=== PATIENT | male | born 1965 | race Caucasian/White ===

== ENCOUNTER 2024-09-22 06:25 | Day surgery (SDC) | payer BC, SELFPAY ==
[2024-09-22] VITALS (20 sets, daily range): BP systolic 121–168; BP diastolic 72–92; BMI 27.1
[2024-09-22 07:15] LABS: Glucose - Point of Care 135 mg/dl (70-99)
--- NOTE | 2024-09-22 08:41 | ITS.CL.CATH ---
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
Cardiac Catheterization
Procedure Report:
LEFT HEART CATHETERIZATION
Date of Procedure: September 22, 2024
Procedures performed:
1: Coronary angiography
2: Left ventricular hemodynamic assessment
Primary Care Physician: Dr. Soniya Delgado
Primary Rasper Machine Operator: Dr. Enmanuel Frausto
INDICATION: The patient is a 59-year-old man with a past medical history significant for hypertension and diabetes who presented with increased fatigue. Echocardiography on July 10, 2024 showed significant mitral valve abnormality suggesting
anterior mitral valve prolapse with severe mitral regurgitation. Left ventricular ejection fraction is estimated at 50 to 55%.
ACCESS: The patient was prepped and draped in usual sterile fashion. A 6 Kazakh sheath was placed in the right radial artery using the Seldinger over the wire technique.
HEMODYNAMIC FINDINGS (mmHg):
LV(s/d,EDP): 126/12, 23
Ao(s/d,m): 126/85, 100
ANGIOGRAPHIC FINDINGS:
Single-plane Left Ventriculography in OROZCO Projection: Not done.
Coronary Angiography:
Dominance: Left
Left Main: Normal
Left Anterior Descending: The LAD is a medium caliber vessel that gives rise to 1 high first diagonal branch and 2 smaller distal diagonals that are widely patent. All vessels have normal distal flow.
Left Circumflex: The left anterior descending artery is a large dominant system that gives rise to a medium caliber OM1 and a larger left-sided posterior left ventricular branch and terminates in a small posterior descending artery. All vessels are
widely patent with only very mild luminal irregularities and normal flow.
Right Coronary: The right coronary artery is a large caliber but nondominant vessel that is widely patent.
Fluoroscopy Time (min): 2.4
Radiation Dose (mGy): 380
DAP (Gy.cm2): 23
Closure device: None. A TR band was applied for hemostasis at the right wrist.
Complications: None.
ASSESSMENT:
1: Very mild nonobstructive coronary artery disease.
CONCLUSIONS and RECOMMENDATIONS:
1: Proceed with transesophageal echo to better define mechanism of mitral regurgitation followed by CT surgical evaluation for mitral valve repair.[email or web address]
2: Continue medical therapy for diabetes and hypertension.
Cecilio Mcmahon M.D.
Copy to: Dr. Patton as well
== END 2024-09-22 12:10 | disposition home or self-care (01) ==
LOC: CATH 06:25
PROVIDERS: ATTENDING PHYSICIAN Internal Medicine Interventional Cardiology; FAMILY PHYSICIAN Family Medicine; REFERRING PHYSICIAN Internal Medicine Cardiovascular Disease
DX: I34.0 Nonrheumatic mitral (valve) insufficiency (principal); I25.10 Atherosclerotic heart disease of native coronary artery without angina pectoris; I10 Essential (primary) hypertension; E11.9 Type 2 diabetes mellitus without complications; Z79.82 Long term (current) use of aspirin; Z79.84 Long term (current) use of oral hypoglycemic drugs
CPT/HCPCS: 82962; 93454; C1894; Q9967

== ENCOUNTER 2024-09-23 07:06 | Day surgery (SDC) | payer BC, SELFPAY ==
[2024-09-23 08:01] LABS: Glucose - Point of Care 152 mg/dl (70-99)
== END 2024-09-23 10:04 | disposition home or self-care (01) ==
LOC: CATH 07:06
PROVIDERS: ATTENDING PHYSICIAN Internal Medicine Cardiovascular Disease; FAMILY PHYSICIAN Family Medicine; OTHER PHYSICIAN Internal Medicine Cardiovascular Disease
DX: I08.3 Combined rheumatic disorders of mitral, aortic and tricuspid valves (principal); R53.83 Other fatigue; I10 Essential (primary) hypertension; E11.9 Type 2 diabetes mellitus without complications; I25.10 Atherosclerotic heart disease of native coronary artery without angina pectoris; Z79.82 Long term (current) use of aspirin; Z79.84 Long term (current) use of oral hypoglycemic drugs
CPT/HCPCS: 93312; 93320; 93325; 82962

== ENCOUNTER 2024-10-28 04:51 | Inpatient (IN) | payer BC, SELFPAY ==
[2024-10-22 08:21] VITALS: BMI 25.6
[2024-10-22 08:53] LABS: % Basophils 0.9 % (0-2); % Eosinophils 4.7 % (0-6); % Immature Granulocytes 0.6 % (0-0.5); % Lymphocytes 25.6 % (20.5-51.1); % Monocytes 9.8 % (1.7-9.3); % Neutrophils 58.4 % (42.2-75.2); Absolute Basophils 0.1 10^3/uL (0-0.2); Absolute Eosinophils 0.3 10^3/uL (0-0.7); Absolute Lymphocytes 1.8 10^3/uL (1.2-3.4); Absolute Monocytes 0.7 10^3/uL (0.1-0.6); Hematocrit 44.6 % (39.0-52.0); Hemoglobin 16.4 g/dL (13.0-18.0); Mean Corp Hgb Conc. 36.8 g/dL (33.0-37.0); Mean Corpuscular Hgb 33.2 pg (27.0-31.0); Mean Corpuscular Volume 90.3 fL (80.0-94.0); Mean Platelet Volume 10.6 fL (7.4-10.4); Nucleated Red Blood Cells % 0 % (-); Platelet Count 176 10^3/uL (130-400); Red Blood Cell Count 4.94 10^6/uL (4.70-6.10); White Blood Cell Count 6.8 10^3/uL (4.8-10.8)
[2024-10-22 09:01] LABS: INR 0.94; PT 12.9 Sec (11.4-14.6)
[2024-10-22 09:02] LABS: APTT 27.5 Sec (23.4-35.0)
[2024-10-22 09:07] LABS: Urine Albumin Negative (Neg - Trace); Urine Bilirubin Negative (Negative); Urine Character Clear (Clear); Urine Color Yellow; Urine Glucose Negative (Negative); Urine Ketone Negative (Negative); Urine Leukocyte Negative (Negative); Urine Nitrite Negative (Negative); Urine Occult Blood Negative (Negative); Urine Urobilinogen Negative (Neg - 1+)
--- NOTE | 2024-10-22 10:03 | CM ---
CM following for DC planning needs.
Met w/ patient and spouse, Chioma during PATs for planned MV Repair, 10/28.
Pt. resides w/ spouse in a private, 2 story home w/ 0 MARIE. Functionally, patient is indep. at baseline w/ ADLs, mobility without the use of any assisted device.
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
Pt. has RX plan and uses [facility] in [place] on .
Reviewed pre and post op routines.
Soap, shower instructions and Cardiac Surgery booklet provided.
Discussed post op restrictions to include lifting, driving, flying and sternal precautions.
Reviewed post op MD appointments, Cardiac Rehab and visit from CT Transitional Care RN/ patient agreeable.
Plan is for MV Repair, 10/28
Antic. DC plan is for home w/ CT Transitional Care RN.
Will follow.
[2024-10-22 11:32] LABS: Glycohemoglobin (HgbA1c) 5.8 % (4.0-5.6)
[2024-10-22 14:25] LABS: ALT (SGPT) 26 U/L (0-50); Albumin 4.8 g/dl (3.5-5.0); Alkaline Phosphatase 53 U/L (38-126); Blood Urea Nitrogen 22 mg/dl (9-20); Calcium 9.8 mg/dl (8.4-10.2); Carbon Dioxide 24 mmol/L (22-30); Chloride 99 mmol/L (98-107); Direct Bilirubin 0.1 mg/dl (0.0-0.4); Estimated Creatinine Clearance 117 ml/min; Glucose 144 mg/dl (70-99); Potassium 4.9 mmol/L (3.5-5.1); Sodium 138 mmol/L (135-145); Total Bilirubin 0.7 mg/dl (0.2-1.3); Total Protein 7.7 g/dl (6.3-8.2); eGFR > 60.00
[2024-10-22 16:19] LABS: AST (SGOT) 25 U/L (17-59)
[2024-10-28] VITALS (15 sets, daily range): BP systolic 84–152; BP diastolic 55–87; BMI 26.0
[2024-10-28] MEDS: LOPRESSOR 25 MG PO (05:20)
[2024-10-28] MEDS: BACTROBAN 2% OINTMENT 1 APPLIC NASAL ×2 (05:21→21:04)
[2024-10-28] MEDS: PROTONIX 40 MG PO (05:21)
[2024-10-28] MEDS: MAGNESIUM OXIDE 500 MG PO (05:21)
--- NOTE | 2024-10-28 06:26 | W.CVOR.SURPR ---
CVOR Surgeon Immed Pre Op
-
I have examined this patient prior to performance of the scheduled procedure.
The patient's condition is unchanged from the time of the dictated/written History and
Physical and the patient is able to undergo the scheduled procedure.
Sternotomy MV Repair + FANNY Clip +/- LA MAZE
[2024-10-28 08:03] LABS: ACT+ - POC 120 Seconds (82-134)
[2024-10-28 08:22] LABS: Urine Albumin Negative (Neg - Trace); Urine Bilirubin Negative (Negative); Urine Character Clear (Clear); Urine Color Yellow; Urine Glucose Trace (Negative); Urine Ketone Negative (Negative); Urine Leukocyte Negative (Negative); Urine Nitrite Negative (Negative); Urine Occult Blood Negative (Negative); Urine Specific Gravity 1.025 (<1.030); Urine Urobilinogen Negative (Neg - 1+)
--- NOTE | 2024-10-28 08:33 | CM ---
Reviewed chart. Mr. Mayo is in the operating room today. Prior to admission he resides with his spouse in a two story home without any steps to enter. Prior to admission he was independent with ambulation and adls. He has a prescription plan
and uses [facility]. Medical work-up in progress. The discharge plan is to return home with his spouse and a home visit by the Transitional Care Nurse when medically stable.
[2024-10-28 08:52] LABS: ACT+ - POC 589 Seconds (82-134)
[2024-10-28 09:11] LABS: B.E. - POC -1.6 mmol/L; Glucose - POC 191 mg/dl (70-99); HCO3 - POC 24 mmol/L (21-28); Hematocrit - POC 36 % PCV (42-52); Hemodilution- POC No; Hemoglobin Calculated - POC 12.2; Ionized Calcium - POC 1.23 mmol/L (1.15-1.33); O2 Saturation %Calculated-POC 99.6 % (94-98); PCO2 - POC 40 mmHg (35-48); PO2 - POC 191 mmHg (83-108); Potassium - POC 4.2 mmol/L (3.5-5.1); Sodium - POC 140 mmol/L (136-145); Specimen Type - POC Arterial; pH - POC 7.38 (7.35-7.45)
[2024-10-28 09:24] LABS: ACT+ - POC 610 Seconds (82-134)
[2024-10-28 09:48] LABS: B.E. - POC 1.2 mmol/L; Glucose - POC 207 mg/dl (70-99); HCO3 - POC 26 mmol/L (21-28); Hematocrit - POC 34 % PCV (42-52); Hemodilution- POC Yes; Hemoglobin Calculated - POC 11.4; Ionized Calcium - POC 1.04 mmol/L (1.15-1.33); O2 Saturation %Calculated-POC 99.7 % (94-98); PCO2 - POC 38 mmHg (35-48); PO2 - POC 186 mmHg (83-108); POC Comment CPB; Potassium - POC 5.6 mmol/L (3.5-5.1); Sodium - POC 137 mmol/L (136-145); Specimen Type - POC Arterial; pH - POC 7.43 (7.35-7.45)
[2024-10-28 09:59] LABS: ACT+ - POC 549 Seconds (82-134)
[2024-10-28 10:19] LABS: B.E. - POC 0.9 mmol/L; Glucose - POC 153 mg/dl (70-99); HCO3 - POC 27 mmol/L (21-28); Hematocrit - POC 38 % PCV (42-52); Hemodilution- POC Yes; Ionized Calcium - POC 1.21 mmol/L (1.15-1.33); O2 Saturation %Calculated-POC 99.9 % (94-98); PCO2 - POC 47 mmHg (35-48); PO2 - POC 307 mmHg (83-108); POC Comment CPB; Potassium - POC 3.9 mmol/L (3.5-5.1); Sodium - POC 142 mmol/L (136-145); Specimen Type - POC Arterial; pH - POC 7.36 (7.35-7.45)
[2024-10-28 10:27] LABS: ACT+ - POC 462 Seconds (82-134)
[2024-10-28 10:51] LABS: B.E. - POC -0.1 mmol/L; Glucose - POC 111 mg/dl (70-99); HCO3 - POC 26 mmol/L (21-28); Hematocrit - POC 39 % PCV (42-52); Hemodilution- POC Yes; Hemoglobin Calculated - POC 13.3; Ionized Calcium - POC 1.25 mmol/L (1.15-1.33); O2 Saturation %Calculated-POC 99.9 % (94-98); PCO2 - POC 49 mmHg (35-48); PO2 - POC 337 mmHg (83-108); POC Comment CPB; Potassium - POC 3.3 mmol/L (3.5-5.1); Sodium - POC 144 mmol/L (136-145); Specimen Type - POC Arterial; pH - POC 7.34 (7.35-7.45)
[2024-10-28 11:00] LABS: ACT+ - POC 495 Seconds (82-134)
[2024-10-28 11:04] LABS: B.E. - POC -2.1 mmol/L; Glucose - POC 94 mg/dl (70-99); HCO3 - POC 22 mmol/L (21-28); Hematocrit - POC 32 % PCV (42-52); Hemodilution- POC Yes; Hemoglobin Calculated - POC 10.8; PCO2 - POC 32 mmHg (35-48); PO2 - POC 540 mmHg (83-108); POC Comment REWARM; Potassium - POC 4.1 mmol/L (3.5-5.1); Sodium - POC 143 mmol/L (136-145); Specimen Type - POC Arterial; pH - POC 7.44 (7.35-7.45)
[2024-10-28 11:10] LABS: ACT+ - POC 109 Seconds (82-134)
[2024-10-28 11:11] LABS: B.E. - POC -3.2 mmol/L; Glucose - POC 95 mg/dl (70-99); HCO3 - POC 22 mmol/L (21-28); Hematocrit - POC 29 % PCV (42-52); Hemodilution- POC Yes; Hemoglobin Calculated - POC 9.7; Ionized Calcium - POC 1.44 mmol/L (1.15-1.33); O2 Saturation %Calculated-POC 99.9 % (94-98); PCO2 - POC 38 mmHg (35-48); PO2 - POC 367 mmHg (83-108); POC Comment POST; Potassium - POC 3.5 mmol/L (3.5-5.1); Sodium - POC 144 mmol/L (136-145); Specimen Type - POC Arterial; pH - POC 7.37 (7.35-7.45)
--- NOTE | 2024-10-28 11:41 | W.PN.CT.SURG ---
CT Surgery Operative Note
-
CARDIAC SURGERY OPERATIVE REPORT
Preoperative Diagnosis: Myxomatous mitral valve degeneration with severe insufficiency
Postoperative Diagnosis: Same
Procedure(s) Performed:
1. Standard sternotomy with aortic and bicaval cannulation
2. Radical mitral valve repair [triangular resection of P2, imbrication of the leaflets at P1/P2 and P2/P3, free edge remodeling, 40 mm band annuloplasty, heavy debridement of calcification from the anterior lateral probably muscle head to the P1
P2 segment of the posterior annulus]
3. Left atrial appendage exclusion [35 mm clip]
4. Transesophageal echocardiography
5. Placement of temporary atrial and ventricular pacing wire
Date of Surgery: 10/28/2024
Comorbidities:
1. Myxomatous mitral valve degeneration, severe mitral valve insufficiency, type II pathology mixed with calcification of the subvalvular apparatus
2. Diabetes mellitus type 2
3. Hypertension
4. Very mild nonobstructive coronary artery disease
5. Depression/anxiety
6. Hyperlipidemia
7. Mild diabetic retinopathy
8. PVCs
Attending Surgeon: Eliezer Hogan MD, MS
Assistants: Connie Ashford PA-C (present and necessary to case assistant, retraction, suction, exposure, suture management, and wound closure under my direction)
Anesthesiology: Gene Bundy MD and Chicho Wang CRNA
Scrub and Circulating RNs: Staci Henry RN, Kodi Alonzo RN
Inoculator: Justin Weems CCP
Anesthesia: GETA
EBL: per perfusion records
Products: None
CPB Time: 117 minutes
Aortic Cross Clamp Time: 104 minutes
Indication(s) for Procedures: This is a 59-year-old male with known mitral valve insufficiency. More recently has become symptomatic in the pulm shortness of breath as well as daily fatigue with minimal level of exertion. He therefore met stage D
symptomatology and class I indication for surgical repair. The valve itself is a very complex pathology with a combination of type II pathology as well as calcification and restriction at the anterior lateral to operative muscle head towards the P1
P2 segment. His STS was reviewed in the office. She had decision making was to pursue surgical intervention..
Mitral Valve Description: Very abnormal appearing mitral valve thickening of both the anterior and posterior leaflets, heavy calcification of the anterior lateral papillary muscle head that extended into the free margin of the P1 and P2 scallops.
There was restriction at the free margin of P1. There was also a moderate degree of mitral annular calcification extending from the P1 all the way to the midportion of P3. The annulus was severely dilated.
Findings: Left ventricular ejection fraction preoperatively was 65%. Following surgery his EF remained the same at 65% with no new regional wall motion abnormalities his mitral valve was quite complex and pathology had a combination of both
prolapsing of the posterior leaflet with very large scallops between P1 and P2 and P2 and P3 and billowing of both the anterior and posterior leaflets. There is also a heavy degree of calcification of the anterior lateral papillary muscle head
extending into the subvalvular apparatus up into the scallops. This was resected using a rongeur and sharp dissection. I then did a triangular section of part of the P2 scallop and freed the P1 free margin in order to allow better motion of the
posterior leaflet. I then reapproximated P1 onto P2 and then P2 1 to P3. The free margin of all 3 scallops were then remodeled in order to promote a downward parachuting effect. I initially placed [place]Shiva to the posterior leaflet. With
pressurization of the left ventricle, the coaptation that was previously there without the cords seem to be a little bit worse. Therefore I elected to remove all of the [place]-Shiva sutures to the posterior leaflet. Dynamic inflation of the left
ventricle revealed good coaptation height of approximately 1 cm., For cardiopulmonary bypass there was no residual mitral valve insufficiency, low mean gradient across the valve, and no systolic anterior motion of the leaflets. He did not require
any inotropic support or transfusions of any blood products. He was in sinus rhythm after short period of AV pacing. Initially there was some concern for a left atrial thrombus on preoperative YU, this was more likely folds in the left atrial
pended. After crossclamping I open the left atrial appendage at the tip to and visualized inside, there was no evidence of clot whatsoever. The appendage was then clipped flush to the base with a 35mm device.
Specimen(s): Posterior leaflet P2 triangular resection.
Prosthesis:
1. 40 mm physio flex band annuloplasty, serial #[id number]
2. 35 mm clip, serial #[id number]
3. Multiple 5-0 Prolene sutures to reapproximate the posterior leaflet
Description of Procedure: The patient was taken to the operating room. Their identity and procedure to be performed were verified and they were positioned supine on the operating table. Induction via general anesthesia with endotracheal intubation
was performed and central venous access and arterial monitoring were inserted. A preoperative transesophageal echocardiogram was performed to assess cardiac function and valvular function. The patient was then prepped and draped from chin to feet in
a sterile fashion. A preoperative time-out was performed with all members of the team present. A midline chest incision was performed along with median sternotomy. The innominate vein was isolated. Full heparinization was given (a total of 40,000
units). We created a pericardial well. The aortic cannulation site was chosen where it was soft, pliable, and free of calcium. Cannulation was performed with an arterial cannula in the ascending aorta, angled metal tip cannular in the superior vena
cava and straight bendable cannula in the inferior vena cava. The arterial cannula line had an appropriate bounce and correlating pressures. Next, a root vent/antegrade cannula was inserted into the ascending aorta. The ACT was confirmed to be over
400 and retrograde autologous priming was performed before commencing cardiopulmonary bypass. The pulmonary artery was away from the aorta to facilitate a clamp site. Sondergaard�s groove was developed after creating the oblique sinus. The
aortic cross-clamp was placed after decreasing the flow on the bypass and mean arterial pressure. A total of 1.2L initial dose of antegrade Del-Nido cardioplegia solution was given and planned for re-dosing every 90 minutes as necessary. There was
rapid electro-mechanical arrest of the heart at 300 cc of cardioplegia. The left ventricle was observed for distention on echocardiogram and manual palpation. Cold slush was placed into a lap on the RV and we systemically cooled to 34 degrees
centigrade. Once heart was fully arrested, it was rotated medially. The left atrial appendage tip was then resected in a visualize down into the left atrial appendage and found no clot. A 35 mm device was sized to the base of the clip and then
deployed.
Carbon dioxide was used to flood the field. The mitral valve was access via the left atrium at the interatrial groove followed by valve analysis. The mitral valve was repaired as described above. The left ventricular vent was repositioned across
the mitral valve into the left ventricular and the left atrium was closed with a 3-0 prolene.
De-airing maneuvers were performed and temporary bipolar ventricular pacing wires were placed on the base of the right ventricle along with temporary atrial pacing wires at the SVC right atrial junction. The patient was placed in a Trendelenburg
position and flows on bypass were lowered. The aortic cross clamp was removed and flows were slowly brought back up. The left atrial suture line was hemostatic. Transesophageal echocardiography revealed no evidence of systolic anterior motion and
ventricular function was normal. Once de-airing was satisfactory the left ventricular and root vents were removed. After verifying acceptable parameters, we initiated weaning from cardiopulmonary bypass. Once we were off cardiopulmonary bypass, the
venous cannulas was clamped and removed sequentially. A test dose of protamine was administered and the patient was monitored for any adverse reaction before resuming protamine. Once half of the protamine dose was delivered, pump suckers were turned
off and the systolic blood pressure was lowered for aortic decannulation. The aortic cannula was removed and purse strings were tied down. All cannulation sites were oversewn with a 4-0 prolene. The left atrial suture line was inspected and
hemostasis was confirmed. Mediastinal hemostasis was obtained. Two #24 Valentin drains were placed within the pericardium. The sternum was approximated with 4 #7 single and 3 #8 double stainless steel wires. Fascia was approximated with #1 vicryl
suture. The subcutaneous, dermis and epidermis were closed in layers in a running fashion. The skin wound was cleansed and dressed.
All instrument, sponge, and needle counts were confirmed to be correct x 2 at the end of the operation. The patient was transferred to the cardiac intensive care unit in critical but stable condition.
I, Dr. Eliezer Hogan, was present, scrubbed for, and performed all critical elements of this procedure.
Eliezer Hogan MD, MS
Cardiothoracic Surgeon
[facility]
This dictation was created using the [employer] dictation system. Please excuse any grammatical, typographical, or 'sound alike' errors
[2024-10-28] MEDS: NOVOLOG FLEXPEN SC ×2 (11:42→15:41)
[2024-10-28] MEDS: NEURONTIN PO (11:42)
[2024-10-28 12:01] LABS: Glucose - Point of Care 174 mg/dl (70-99)
[2024-10-28 12:06] LABS: B.E. -1.8 mmol/L; HCO3 23.1 mmol/L (21-28); Ionized Calcium 1.32 mMOL/L (1.15-1.33); O2 Saturation % 99.5 % (94-98); PCO2 39 mmHg (35-48); PO2 129 mmHg (83-108); Potassium 3.8 mMOL/L (3.5-5.1); Sodium 138 mMOL/L (136-145); pH 7.38 (7.35-7.45)
[2024-10-28 12:08] LABS: O2 Therapy vent
[2024-10-28] MEDS: ANCEF 10 IV ×2 (12:18→12:19)
[2024-10-28] MEDS: NSS 500 IV (12:18)
[2024-10-28] MEDS: KCL 50 IV ×4 (12:18→16:41)
[2024-10-28 12:29] LABS: Blood Urea Nitrogen 23 mg/dl (9-20); Estimated Creatinine Clearance > 125 ml/min; Glucose 163 mg/dl (70-99); Magnesium 2.9 mg/dl (1.6-2.3)
--- NOTE | 2024-10-28 12:29 | W.PN.UPDATE ---
Update Note
Progress Note Update
Crystalloid:� 2300
U.O.:� 450
UF:� 900
Blood:� None
Wires:� A +V
Inotropes:� None
Pressors:� levophed
Sedatives:� Precedex
�
NEURO: sedated on precedex, pupils +2mm B/L
RESP: #8OT @25cm> 14/550/40/5 Lungs clear B/L. 2 mediastinal (10cc on arrival) chest tubes to -20cm suction. Sanguineous drainage
CV: RRR +S1, S2, no S3, no�rub, no murmur. Dermabond to median sternotomy. RIJ w/[place] locked @ 49cm. PA 34/16; CVP 13; C.O 3.8/CI 1.8
ABD: round, soft, no BS
EXT: no edema, +2/4 DP pulses B/L, no femoral bruit, left radial A-line intact
: Vaca with clear yellow urine
�
A/P: POD #0 s/p MVrepair with #40mm Booker physio flex ring, LAAC
YU: EF�nml
- wean and extubate
- Monitor CT and urine output
- Follow up labs and CXR
- Wean levophed for maps >65
- Goal SBP 90-130s
- Will start ASA tonight
- EKG completed
- Cards consulted
�
# acute surgical blood loss anemia-expected
- trend CBC
�
�
# T2DM (A1C 5.8)
- insulin infusion x 24h
- resume Metformin and Glimepiride when able
�
# Hyperlipidemia
- resume�statin
[2024-10-28] MEDS: LR 250 ML IV ×4 (12:37→18:36)
[2024-10-28 12:44] LABS: INR 1.24; PT 16.1 Sec (11.4-14.6)
--- NOTE | 2024-10-28 12:53 | PTCARENOTE ---
Pt received from CVOR at 1150; Sedated and intubated; NSR on monitor; VSS; Epicardial AV wires insulated, temporary pacemaker settings for backup DDD 40/10/0.5 40/10/2.0; +2 DP and radial pulses; Lungs diminished at bases; ETT size 8 positioned and
secured at 24 cm right lip; Ventilator settings SIMV 14/5/5 FiO2 40%; CTx2 to -20 cm wall suction draining bloody drainage - no air leak, tidaling, or crepitus noted; Hypoactive BS; Vaca catheter in place draining clear, yellow urine; Sternal
Midline Incision glued and approximated - CDI, A-line in left radial artery, [place] Carlos floated to 47 cm in RIJ Cordis - all lines zeroed and level; PIVx1 #18 FA; Levo/Insulin/Precedex infusing - see nursing flowsheets for further details; K repleted x2;
LR Bolus given x1; See nursing documentation for further information.
CO: 3.88
CI: 1.81
SVR: 1,340
[2024-10-28 13:00] LABS: Glucose - Point of Care 199 mg/dl (70-99)
[2024-10-28 13:25] LABS: Hematocrit 33.8 % (39.0-52.0); Hemoglobin 12.7 g/dL (13.0-18.0); Platelet Count 161 10^3/uL (130-400)
[2024-10-28] MEDS: TYLENOL PO (13:46)
[2024-10-28 14:02] LABS: Glucose - Point of Care 160 mg/dl (70-99)
--- NOTE | 2024-10-28 14:38 | PTCARENOTE ---
RT in room and patient placed on CPAP trial. ABG's due at 1504
--- NOTE | 2024-10-28 14:43 | CON.INTV ---
Consultation
Consultation Request
Date/Time Consultation Requested: 10/28/24
Date/Time Consultation Performed: 10/28/24
Performing Provider: Yazmin
Reason for Consultation: CVICU
Medical History
-
History of Present Illness:
Patient is a 59-year-old male with previous history of diabetes, hypertension, anxiety/depression presenting for elective cardiac procedure. He has known history of mitral valve insufficiency due to anterior mitral valve prolapse with severe mitral
regurgitation. He had undergone recent cardiac catheterization which demonstrated mild nonobstructive CAD. Prior echocardiogram demonstrated normal EF but he does mention prior complaints of fatigue, shortness of breath with exertion,
palpitations, dizziness and lightheadedness. Underwent radical mitral valve repair on 10/28/2024 and postoperatively transferred to CVICU for further management.
Past Medical History
Past Medical History: Other (see list below)
Social History
Tobacco: Non-smoker
Alcohol: None
Drug: None
Family History
Family History: Reviewed & Not Pertinent
Allergies / Home Medications
Allergies
Allergy/AdvReac Type Severity Reaction Status Date / Time
No Known Allergies Allergy Unverified 10/19/24 13:30
Home Medications
�Medication �Instructions �Recorded �Confirmed �Last Taken �Type
aspirin 81 mg chewable tablet 81 mg PO DAILY 09/22/24 10/28/24 10/27/24 History
atorvastatin 10 mg tablet 10 mg PO QPM 09/22/24 10/28/24 10/27/24 History
duloxetine 40 mg capsule,delayed 40 mg PO DAILY 09/22/24 10/28/24 10/27/24 History
release
glimepiride 2 mg tablet 2 mg PO BID 09/22/24 10/28/24 10/27/24 History
metformin 1,000 mg tablet 1,000 mg PO BID 09/22/24 10/28/24 10/27/24 History
metoprolol succinate 25 mg 25 mg PO QPM 09/22/24 10/28/24 10/27/24 History
tablet,extended release 24 hr
amoxicillin 500 mg tablet 500 mg PO TID 10/19/24 10/28/24 10/24/24 History
Review of Systems
-
History Source: Patient
All other systems: Negative unless noted
Vitals / Labs / Diagnostic Testing
Vital Signs
Temp Pulse Resp BP Pulse Ox
98.0 F 73 16 99/75 98
10/28/24 14:00 10/28/24 14:00 10/28/24 14:00 10/28/24 14:00 10/28/24 14:35
Lab Data
10/28/24 11:58
Laboratory Results
10/28/24
11:58
PT 16.1 H
INR 1.24
APTT 29.0
pH 7.38
pCO2 39
pO2 129 H
HCO3 23.1
O2 Delivery Level vent
Diagnostic Testing:
Physical Exam
-
HEENT: Normocephalic, Anicteric and Moist Mucous Membranes
Cardiovascular: S1/S2 and Regular Rhythm
Respiratory: Clear, Non-Labored Respirations and Other (chest tube)
GI: Soft, Non Distended and Non Tender
Neurology: Awake, Alert, Oriented and No Motor Deficits
Skin: Warm, Dry and Good Color
General: Comfortable, Pain and Other (NAD)
Assessment
-
Patient is a 59-year-old male with previous history of diabetes, hypertension, anxiety/depression presenting for elective cardiac procedure. He has known history of mitral valve insufficiency due to anterior mitral valve prolapse with severe mitral
regurgitation. He had undergone recent cardiac catheterization which demonstrated mild nonobstructive CAD. Prior echocardiogram demonstrated normal EF but he does mention prior complaints of fatigue, shortness of breath with exertion,
palpitations, dizziness and lightheadedness. Underwent radical mitral valve repair on 10/28/2024 and postoperatively transferred to CVICU for further management.
Severe MR s/p MVR 10/28/24
Postoperative anemia
Hyperglycemia
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
Diabetes mellitus type 2
Hypertension
Mild nonobstructive CAD
Depression/anxiety
Hyperlipidemia
Mild diabetic retinopathy
PVCs
Plan
S/p MVR POD #0
Titrate off pressors per protocol
ECHO reviewed with normal function, minimal CAD on C
PA catheter readings reviewed
Management of chest tubes per primary service
Pain control
RASS goal of 0 to -1
Intubated for procedure, extubated and doing well
ABG(s) reviewed/adequate
CXR with stable postop changes
Maintain supplement oxygen as needed
No prior history of pulmonary disease
No prior PFTs for review
Can add nebulizers if needed
Aspiration precautions
Encouraged incentive spirometry, OOB/ambulation/early mobility
Advance diet as tolerated following extubation
GI prophylaxis if indicated for mechanical ventilation >48 hours
Monitor critical I/O's
Vaca/chest tube output
Hb/platelets postoperatively stable
Trend CBC for now
Can transfuse if indicated for Hb <7, plt <50 in surgical patients
DVT prophylaxis including SCDs
Insulin protocol initiated and ongoing
Transition to SQ/off as indicated per team
We will follow
Diagnostic Data
Chest X-Ray: 10/28/24- Status post cardiothoracic surgery. Lung volumes are low. Lungs are clear.
CT Scan: CHEST 10/15/24- There is mitral valvular calcification and mitral annular calcification
The study is otherwise normal
Echo: YU 10/28/24- Overall LVEF is approximately 55% with no RWMA. Moderately dilated left atrium. Mildly dilated right atrium. Severe mitral regurgitation. MR etiology is multifactorial due to massive annular dilation, anterior and posterior
prolapse, annular calcification, and clefts. Mid ascending aorta is dilated measuring 3.5 cm at the level of the RPA. Minimal scattered atheroma seen in the descending aorta and distal arch.
PFT's:
Reports and relevant images were personally reviewed.
-----
Critical care time 51 mins -- this includes review of history, physical exam, medications, hemodynamic/ventilator parameters, laboratory data, imaging and discussion with house staff, pharmacy, respiratory therapy, quotation clerk, and nursing.
[2024-10-28] MEDS: ZOFRAN 4 MG IV (14:48)
[2024-10-28 15:01] LABS: Glucose - Point of Care 132 mg/dl (70-99)
[2024-10-28 15:11] LABS: HCO3 23.7 mmol/L (21-28); Ionized Calcium 1.25 mMOL/L (1.15-1.33); PCO2 43 mmHg (35-48); PO2 146 mmHg (83-108); Potassium 3.7 mMOL/L (3.5-5.1); Sodium 140 mMOL/L (136-145); pH 7.35 (7.35-7.45)
--- NOTE | 2024-10-28 15:20 | RESPNOTE ---
Patient extubated following cpap trial and abg. Placed on a 6L nasal cannula. Incentive spirometry instruction completed
--- NOTE | 2024-10-28 15:25 | PTCARENOTE ---
ABG's reviewed; RT at bedside; Patient extubated at 1520 and placed on 6L NC
[2024-10-28 15:57] LABS: Glucose - Point of Care 122 mg/dl (70-99)
[2024-10-28 16:07] LABS: Hematocrit 34.7 % (39.0-52.0); Platelet Count 192 10^3/uL (130-400)
[2024-10-28] MEDS: LOW STRENGTH ASPIRIN 81 MG PO (16:24)
[2024-10-28] MEDS: DILAUDID 0.25 MG IV (16:25)
[2024-10-28] MEDS: PACERONE 200 MG PO ×2 (17:09→21:05)
[2024-10-28] MEDS: NEURONTIN 100 MG PO ×2 (17:09→21:03)
[2024-10-28] MEDS: DILAUDID 0.5 MG IV (17:17)
[2024-10-28] MEDS: REGLAN 10 MG IV (17:32)
[2024-10-28] MEDS: CORDARONE 103 MG IV (17:58)
[2024-10-28 18:01] LABS: Glucose - Point of Care 135 mg/dl (70-99)
[2024-10-28] MEDS: CORDARONE 518 MG IV (18:15)
--- NOTE | 2024-10-28 18:43 | PTCARENOTE ---
LR bolus given x2; K repleted x2; IV Reglan 10 mg given x1 for nausea after pt already received PRN IV Zofran earlier; IV Dilaudid given accordingly for pain; IV Amio gtt started d/t increasing HR and PVC's; CVNP Lashae C. notified and aware of CI<2
- additional LR bolus ordered and given; See nursing flowsheets for further details
--- NOTE | 2024-10-28 19:00 | PTCARENOTE ---
Pt received start of shift, bedside handoff with previous shift RN. Gtts infusing as follows: Levo @ 2 mcg/min, Amio at 0.5mg/hr, and Insulin at 3u/hr. HR SR w/ occasional PVCs on telemetry. AAOX3, neuro intact. Pt with full feeling in all
extremities. Pupils reactive. Pt still drowsy but easily aroused. Pt's lungs clear b/l, diminished at bases. Pt using IS. 2L NC 97%. Chest tubes in place, draining red drainage. Trace crepitus noted around sternal incision site and upper chest. No
air leak noted. Vaca in place, draining clear yellow urine. [place] in place, L arterial line in place.
[2024-10-28] MEDS: ANCEF 5 IV (19:21)
[2024-10-28 19:55] LABS: Mixed Venous O2 Saturation 66.9 %
[2024-10-28 20:02] LABS: Glucose - Point of Care 127 mg/dl (70-99)
[2024-10-28] MEDS: TYLENOL 1000 MG PO (21:03)
[2024-10-28] MEDS: SENOKOT-S 1 TABLET PO (21:04)
[2024-10-28 21:12] LABS: Glucose - Point of Care 123 mg/dl (70-99)
[2024-10-28 22:03] LABS: Glucose - Point of Care 106 mg/dl (70-99)
[2024-10-28 23:16] LABS: Glucose - Point of Care 118 mg/dl (70-99)
[2024-10-29] VITALS (33 sets, daily range): BP systolic 98–126; BP diastolic 59–96; PULSE 72; O2SAT 96; BMI 26.2
[2024-10-29] MEDS: ROXICODONE 5 MG PO ×3 (00:01→16:38)
[2024-10-29 00:08] LABS: Glucose - Point of Care 114 mg/dl (70-99)
--- NOTE | 2024-10-29 00:26 | PTCARENOTE ---
Pt reassessed. Temp pacer settings checked, wires plugged in - 1 pause and subsequent spike noted on telemetry. Vaca care provided. Around 1930 CI<2, notified CVPA Tsilina - mixed venous lab ordered and drawn. Levo off. Insulin at 3.5u/hr, amio
still 0.5mg/hr. 0000 CI>2. Pain rated 4/10 at sternum. PRN 5mg Julai administered - see MAR. No further change in assessment.
[2024-10-29 02:02] LABS: Glucose - Point of Care 97 mg/dl (70-99)
[2024-10-29 02:36] LABS: Hematocrit 33.4 % (39.0-52.0); Hemoglobin 12.3 g/dL (13.0-18.0); Mean Corp Hgb Conc. 36.8 g/dL (33.0-37.0); Mean Corpuscular Hgb 32.9 pg (27.0-31.0); Mean Corpuscular Volume 89.3 fL (80.0-94.0); Mean Platelet Volume 10.7 fL (7.4-10.4); Platelet Count 141 10^3/uL (130-400); Red Blood Cell Count 3.74 10^6/uL (4.70-6.10); Red Cell Dist. Width 12.3 % (11.5-14.5); White Blood Cell Count 17.5 10^3/uL (4.8-10.8)
[2024-10-29 02:58] LABS: Blood Urea Nitrogen 22 mg/dl (9-20); Calcium 8.3 mg/dl (8.4-10.2); Carbon Dioxide 23 mmol/L (22-30); Chloride 108 mmol/L (98-107); Estimated Creatinine Clearance > 125 ml/min; Glucose 109 mg/dl (70-99); Magnesium 2.3 mg/dl (1.6-2.3); Potassium 4.4 mmol/L (3.5-5.1); Sodium 136 mmol/L (135-145); eGFR > 60.00
[2024-10-29] MEDS: DILAUDID 0.25 MG IV (03:06)
[2024-10-29] MEDS: ANCEF 5 IV ×2 (03:07→13:15)
[2024-10-29] MEDS: ZOFRAN 4 MG IV (03:14)
--- NOTE | 2024-10-29 03:37 | W.PN.CT ---
Today's Communication / Plan
-
-pod #1
-no issues overnight
-CI 2.49, CO 5.33. Drips: Amio 0.5 for PVCs, Insulin, Cardene 2.5
-CT output: 2 meds 115/295 in 12/24 hrs
-deline
-continue insulin
-d/c Vaca
-current meds: ASA, Lipitor, Lopressor, Amio, Protonix
-encourage IS, OOB
Assessment / Plan
-
- Myxomatous mitral valve degeneration with severe insufficiency- s/p MVrepair with #40mm Booker physio flex ring, LAAE with [address] Hogan on 10/28/24, pod #1
- Intraop YU: LVEF 65% preop and postop with no new wma. There was no residual mitral valve insufficiency, low mean gradient across the valve, and no systolic anterior motion of the leaflets. The appendage was clipped flush to the base with a
35mm device.
- Myxomatous mitral valve degeneration, severe mitral valve insufficiency, type II pathology mixed with calcification of the subvalvular apparatus
- Diabetes mellitus type 2 (A1c 5.8)
- Hypertension
- Very mild nonobstructive coronary artery disease
- Depression/anxiety
- Hyperlipidemia
- Mild diabetic retinopathy
- PVCs
- Acute postop blood loss anemia - stable, no transfusion
- Acute postop atelectasis
- Acute postop hypovolemia with subsequent hypervolemia
Discussed patient care with: Nursing and Care Team
Subjective
-
Date of Service: October 29, 2024
Objective Data
-
PT 16.1 Sec (11.4-14.6) H 10/28/24 11:58
INR 1.24 10/28/24 11:58
APTT 29.0 Sec (23.4-35.0) 10/28/24 11:58
Vital Signs
Vital Signs
Temp Pulse Resp BP Pulse Ox
99 F 66 13 118/66 98
10/29/24 00:00 10/29/24 00:20 10/29/24 00:20 10/29/24 00:00 10/29/24 00:20
CT Intake/Output/Weight
10/28/24 10/28/24 10/29/24
06:59 18:59 06:59
Intake Total 1750.4 / 1966.0 215.6 / 1966.0
Output Total 570 / 945 375 / 945
Balance 1180.4 / 1021.0 -159.4 / 1021.0
SaO2: 98
Physical Exam
-
General: Awake and AOx3
Cardiovascular: Regular rate & rhythm, No Murmurs and No Rub
Respiratory: Decreased Breath Sounds
Sternum: Stable
Incision: Clean, Dry and Intact
Extremities: No Edema (1+ DPs b/l)
Abdomen: soft, nontender, nondistended, + decreased bowel sounds
Data Reviewed
-
Lab Results: Results Reviewed
Medications: Active Meds Reviewed
Chest X-Ray: Report Reviewed and Image Reviewed
ECG: Report Reviewed and Image Reviewed
[2024-10-29 04:02] LABS: Glucose - Point of Care 176 mg/dl (70-99)
[2024-10-29] MEDS: NOVOLIN R INSULIN INFUSION 100 IV ×2 (04:31→14:13)
--- NOTE | 2024-10-29 05:45 | PTCARENOTE ---
Pt reassessed. Cardene infusion off. Glycemic protocol as ordered, insulin infusing at 4u/hr. Amio at 0.5mg/hr. A-line and swan catheter removed. Vaca removed. Pt assist x2 up in chair. No further change in assessment.
[2024-10-29] MEDS: TYLENOL 1000 MG PO ×3 (05:58→22:07)
[2024-10-29 06:09] LABS: Glucose - Point of Care 123 mg/dl (70-99)
--- NOTE | 2024-10-29 07:34 | W.PN.INTV ---
Addendum entered and electronically signed by Karen Arce DO 10/29/24 16:55:
Transferred to tele per team, we will sign off upon transfer
Original Note:
Today's Communication / Plan
Recommendations
Doing well, off pressors
Transitioning off insulin per team
OOB to chair, PT/OT, IS
Can transfer to tele per team once off IV insulin
Assessment
-
Patient is a 59-year-old male with previous history of diabetes, hypertension, anxiety/depression presenting for elective cardiac procedure. He has known history of mitral valve insufficiency due to anterior mitral valve prolapse with severe mitral
regurgitation. He had undergone recent cardiac catheterization which demonstrated mild nonobstructive CAD. Prior echocardiogram demonstrated normal EF but he does mention prior complaints of fatigue, shortness of breath with exertion,
palpitations, dizziness and lightheadedness. Underwent radical mitral valve repair on 10/28/2024 and postoperatively transferred to CVICU for further management.
Severe MR s/p MVR 10/28/24
Postoperative anemia
Hyperglycemia
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
Diabetes mellitus type 2
Hypertension
Mild nonobstructive CAD
Depression/anxiety
Hyperlipidemia
Mild diabetic retinopathy
PVCs
Plan
S/p MVR POD #1
Titrated off pressors per protocol
ECHO reviewed with normal function, minimal CAD on LHC
PA catheter discontinued
Management of chest tubes per primary service
Pain control
RASS goal of 0 to -1
Intubated for procedure, extubated and doing well
ABG(s) reviewed/adequate
CXR with stable postop changes
Maintain supplement oxygen as needed
No prior history of pulmonary disease
No prior PFTs for review
Can add nebulizers if needed
Aspiration precautions
Encouraged incentive spirometry, OOB/ambulation/early mobility
Advance diet as tolerated following extubation
GI prophylaxis if indicated for mechanical ventilation >48 hours
Monitor critical I/O's
Vaca/chest tube output
Hb/platelets postoperatively stable
Trend CBC for now
Can transfuse if indicated for Hb <7, plt <50 in surgical patients
DVT prophylaxis including SCDs
Insulin protocol initiated and ongoing
Transition to SQ/off as indicated per team
Diagnostic Data
Chest X-Ray: 10/28/24- Status post cardiothoracic surgery. Lung volumes are low. Lungs are clear.
CT Scan: CHEST 10/15/24- There is mitral valvular calcification and mitral annular calcification
The study is otherwise normal
Echo: YU 10/28/24- Overall LVEF is approximately 55% with no RWMA. Moderately dilated left atrium. Mildly dilated right atrium. Severe mitral regurgitation. MR etiology is multifactorial due to massive annular dilation, anterior and posterior
prolapse, annular calcification, and clefts. Mid ascending aorta is dilated measuring 3.5 cm at the level of the RPA. Minimal scattered atheroma seen in the descending aorta and distal arch.
PFT's:
Reports and relevant images were personally reviewed.
-----
Critical care time 31 mins -- this includes review of history, physical exam, medications, hemodynamic/ventilator parameters, laboratory data, imaging and discussion with house staff, pharmacy, respiratory therapy, health care specialist, and nursing.
Subjective Dataa
Subjective Data
Date of Service:
Date of Service: October 29, 2024
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
Subjective:
no acute events ON, remains on insulin gtt
off pressors
Objective Data
Data Reviewed
Vital Signs / I&O / Oxygen:
Vital Signs
Temp Pulse Resp BP Pulse Ox
98.9 F 85 19 112/69 94
10/29/24 06:00 10/29/24 06:40 10/29/24 06:05 10/29/24 06:28 10/29/24 06:40
Intake and Output
10/28/24 10/29/24 10/30/24
06:59 06:59 06:59
Intake Total 2126.7 / 2126.7
Output Total 1410 / 1410
Balance 716.7 / 716.7
SaO2 [CPAP/PSV] 98
SaO2 [SIMV] 99
SaO2 94
Nasal Cannula flow liters per 2
minute
Physical Exam
General: Comfortable and Other (NAD)
HEENT: Normocephalic, Anicteric and Moist Mucous Membranes
Cardiovascular: S1-S2 and Regular Rhythm
Respiratory: Clear, Non-Labored Respirations and Chest Tube
GI: Soft, Non Distended and Non Tender
Neurology: Awake, Alert, Oriented and No Motor Deficits
Skin: Warm, Dry and Good Color
Labs/Micro/Reports
Lab Data
10/29/24 02:15
10/29/24 02:15
Laboratory Results
10/28/24 10/28/24
11:58 14:57
PT 16.1 H
INR 1.24
APTT 29.0
pH 7.38 7.35
pCO2 39 43
pO2 129 H 146 H
HCO3 23.1 23.7
O2 Delivery Level vent
--- NOTE | 2024-10-29 07:44 | PN.DE.MGMTRT ---
Insulin Management
- -
10/29/2024: Diabetes Management Consult
59 year old male with PMH: CAD, HTN, HLD, Anxiety, Depression and T2DM. Presented for elective cardiac procedure. Pt has known history of mitral valve insufficiency due to anterior mitral valve prolapse with severe mitral regurgitation.
He is now POD #1 s/p radical mitral valve repair.
Pt awake, alert, oriented, sitting up in chair, offers no complaints, able to discuss diabetes management
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
He remains on the CCGP, glucose range 97 to 176, requiring 0.7 to 7 units of insulin/hr in addition to NovoLog 4 units AC
Will cont current regimen with plans to transition off drip tomorrow to oral regimen.
Discussed starting Farxiga or Jardiance and pt was agreeable with whichever one is preferred.
S/W to look into monthly cost and co-pay.
Diabetes History
- -
Type of Diabetes: 2 requiring insulin
Pre-Admission Diabetes Regimen
10/28/24 10/29/24
11:58 02:15
Creatinine 0.6 L 0.6 L
Lab Results
Hemoglobin A1c 5.8 % (4.0-5.6) H 10/22/24 08:31
Insulin Pump Settings
IP Diabetes Regimen
10/28/24 10/28/24 10/28/24
11:58 12:58 13:59
Glucose 163 H
POC Glucose 174 H 199 H 160 H
10/28/24 10/28/24 10/28/24
14:57 15:54 18:00
Glucose
POC Glucose 132 H 122 H 135 H
10/28/24 10/28/24 10/28/24
20:01 21:10 22:02
Glucose
POC Glucose 127 H 123 H 106 H
10/28/24 10/29/24 10/29/24
23:14 00:06 02:01
Glucose
POC Glucose 118 H 114 H 97
10/29/24 10/29/24 10/29/24
02:15 04:00 06:07
Glucose 109 H
POC Glucose 176 H 123 H
Meal type: Lunch
Patient Education
--- NOTE | 2024-10-29 08:04 | W.PN.ANS.POP ---
Anesthesia Post Operative
- Anesthesia Post Op Note
Vital Signs Stable-See Nursing Note: Yes
Airway Patent: Yes
Adequate Pain Control: Yes
Change in Mental Status: No
Current Postoperative Nausea & Vomiting: No
Anesthesia Complications: No
General Anesthetic Recall: No
Unplanned Admission: No
Post Op Hydration Adequate: Yes
[2024-10-29 08:09] LABS: Glucose - Point of Care 91 mg/dl (70-99)
[2024-10-29] MEDS: NOVOLOG FLEXPEN SC (08:13)
--- NOTE | 2024-10-29 08:30 | PTCARENOTE ---
Assumed care of patient at 0700. Pt is awake, alert, and oriented. Pt with minimal complaints of sternal pain at this time. Pt is SR with HR 70's. BP 104/68 MAP 80. AV wire in place to back up. Pulse oximetry 97% on 2L nasal cannula. Mediastinal
chest tubes x2 in place, no sign of air leak. Pt tolerating clear liquid diet. Due to void. Midsternal incision approximated and ZANDER. Right IJ cordis in place with KVO. Pt remains on Amio gtt 0.5mg/min. Insulin gtt per glycemic protocol.
[2024-10-29] MEDS: PACERONE 200 MG PO ×3 (08:56→22:08)
[2024-10-29] MEDS: LOPRESSOR 12.5 MG PO ×2 (08:56→20:43)
[2024-10-29] MEDS: PROTONIX 40 MG PO (08:56)
[2024-10-29] MEDS: MAGNESIUM OXIDE 500 MG PO ×2 (08:56→20:43)
[2024-10-29] MEDS: CYMBALTA DELAYED RELEASE 40 MG PO (08:56)
[2024-10-29] MEDS: SENOKOT-S 1 TABLET PO ×2 (08:56→20:44)
[2024-10-29] MEDS: LIDOCAINE 4% PATCH 1 PATCH TOPICAL (08:57)
[2024-10-29] MEDS: BACTROBAN 2% OINTMENT 1 APPLIC NASAL ×2 (08:57→20:42)
[2024-10-29] MEDS: NEURONTIN 100 MG PO ×3 (08:57→22:08)
[2024-10-29] MEDS: LOW STRENGTH ASPIRIN 81 MG PO (08:57)
--- NOTE | 2024-10-29 09:32 | CM ---
Addendum entered by Aleshia Andres 10/29/24 14:22:
Reviewed co-pays with him regarding Jardiance and Farxiga . His co-pay for Farxiga is $1716.39 for 90 days and $496.16 a month. Jardiance is 1801.40 for 90 days and 602.62 a month until his 2500.00 deductible has been met. He states he can not
afford the medications.
Original Note:
Reviewed chart. Met with Mr. Mayo to review discharge plans. He states he is feeling okay. He states prior to admission he resides with his spouse in a two story home without any steps to enter. He state he has a full flight of steps to get
to bedroom/full bathroom. He states he has a powder room on the first floor. He states prior to admission he was independent with ambulation and adls. He states he does not have any DME in the home. He states he has a prescription plan and uses [facility]. He states his spouse will be home to assist in his care if needed. We reviewed a home visit by the Transitional Care Nurse. He is agreeable to a home visit. Medical work-up in progress. The discharge plan is to return home with his
spouse and a home visit by the Transitional Care Nurse when medically stable.
--- NOTE | 2024-10-29 10:39 | W.PN.CARDCBS ---
Today's Communication / Plan
-
continue post op care
on IV amio for PVCs
Impression / Plan
-
Primary Drum Tester: Dr. Teresa Frausto
Assessment:
-Myxomatous mitral valve degeneration with severe insufficiency s/p MV repair with #40mm Booker physio flex ring, FANNY clip 10/28/24
-Diabetes mellitus type 2 (A1c 5.8)
-Hypertension
-Nonobstructive CAD by cath 09/22/24
-Depression/anxiety
-Hyperlipidemia
-Mild diabetic retinopathy
-PVCs
-Post op anemia
ECHO 07/10/24: Anterior mitral valve prolapse with severe MR, EF 50 to 55%
Plan:
-s/p MV repair with #40mm Booker physio flex ring, FANNY clip 10/28/24
-doing well. ambulatory around unit with cardiac rehab
-off pressors
-hgb 12.3. continue asa
-in SR with occ PVCs on review of tele overnight. on IV amio for PVCs @0.5 in addition to lopressor and po amio
-continue post op care
-encouraged IS
-OP follow up with ATC
-d/w nursing
Progress Note - Drum Tester
Subjective
Date of Service: October 29, 2024
reports feeling reasonably well. reports some post op pain
Objective
Labs:
10/29/24 02:15
10/29/24 02:15
Labs
Hgb 12.3 g/dL (13.0-18.0) L 10/29/24 02:15
Hct 33.4 % (39.0-52.0) L 10/29/24 02:15
Plt Count 141 10^3/uL (130-400) D 10/29/24 02:15
PT 16.1 Sec (11.4-14.6) H 10/28/24 11:58
INR 1.24 10/28/24 11:58
APTT 29.0 Sec (23.4-35.0) 10/28/24 11:58
Sodium 136 mmol/L (135-145) 10/29/24 02:15
Potassium 4.4 mmol/L (3.5-5.1) 10/29/24 02:15
BUN 22 mg/dl (9-20) H 10/29/24 02:15
Creatinine 0.6 mg/dL (0.7-1.3) L 10/29/24 02:15
Glucose 109 mg/dl (70-99) H 10/29/24 02:15
Vital Signs and I&O:
Vital Signs
Temp Pulse Resp BP Pulse Ox
98.4 F 73 18 111/60 93
10/29/24 08:00 10/29/24 10:00 10/29/24 09:00 10/29/24 10:00 10/29/24 10:00
Vital Signs
Temp Pulse Resp BP Pulse Ox
98.4 F 73 18 111/60 93
10/29/24 08:00 10/29/24 10:00 10/29/24 09:00 10/29/24 10:00 10/29/24 10:00
Intake & Output
10/27/24 10/28/24 10/29/24 10/30/24
07:59 07:59 07:59 07:59
Intake Total 2157.4 / 2184.8 82.2 / 82.2
Output Total 1410 / 1445 75 / 75
Balance 747.4 / 739.8 7.2 / 7.2
Physical Exam
Physical Exam
GEN: No distress, awake, alert, oriented x3. sitting in chair
HEENT: supple, anicteric, mmm, eomi
LUNGS: Decreased BS B/L bases, no wheezes
CV: Reg, S1/S2, no murmur, + rub
EXT: No cyanosis, clubbing. trace edema of B/L LE
NEURO: Gross non-focal
SKIN: Warm, pink, dry. No rash
[2024-10-29 10:41] LABS: Glucose - Point of Care 164 mg/dl (70-99)
[2024-10-29] MEDS: NSS IV (12:30)
[2024-10-29 12:31] LABS: Glucose - Point of Care 131 mg/dl (70-99)
[2024-10-29] MEDS: FERRLECIT 110 MG IV (13:15)
[2024-10-29] MEDS: NOVOLOG FLEXPEN 4 UNITS SC (13:16)
--- NOTE | 2024-10-29 13:40 | PTCARENOTE ---
Ambulated with cardiac rehab. Remains OOB in chair. Pt remains SR HR 70's. BP 108/69 MAP 79. Pulse oximetry 94% on room air. Pt tolerating PO diet. Pt due to void, bladder scanned for 169mL. Pt remains on Insulin and Amio gtt.
[2024-10-29 14:18] LABS: Glucose - Point of Care 99 mg/dl (70-99)
[2024-10-29] MEDS: GLUCOPHAGE 1000 MG PO (16:32)
[2024-10-29] MEDS: AMARYL 2 MG PO (16:32)
[2024-10-29 16:33] LABS: Glucose - Point of Care 253 mg/dl (70-99)
[2024-10-29] MEDS: LIPITOR 10 MG PO (16:33)
--- NOTE | 2024-10-29 16:45 | PTCARENOTE ---
Pt remains DTV, bladder scanned for 280. Pt SR with HR 80's. BP 111/96 MAP 103. Remains OOB, ambulated within room with RN assistance.
[2024-10-29 17:43] LABS: Glucose - Point of Care 218 mg/dl (70-99)
[2024-10-29 19:00] LABS: Glucose - Point of Care 138 mg/dl (70-99)
[2024-10-29 20:30] LABS: Glucose - Point of Care 88 mg/dl (70-99)
--- NOTE | 2024-10-29 20:30 | PTCARENOTE ---
Patient received OOB in chair. Patient A+A+Ox3. No neurological deficits noted. No c/o headache, dizziness or lightheadedness. Patient assisted to bed with assist x2 without difficulty. No s/s of respiratory distress. No c/o SOB. O2 at 2L via
NC. SpO2 93%. Two chest tubes - Mediastinal x2 - Intact and patent - 5 ml serosanguineous drainage - No air leak. Chest tube dressing intact. Sinus Rhythm with occasional PVC. AV Wires - DDD Mode - A 40/10/0.5 V 40/10/2.0. Patient with no c/o
chest pain, pressure or discomfort. Normoactive bowel sounds. No BM. No c/o nausea. No vomiting. Voiding. Right I.J. Cordis. IV Amiodarone gtt 0.5mg/min (16.7 ml/hr). Insulin gtt. Sternal incision intact - Surgical adhesive - Open to air.
Assessment as documented.
[2024-10-29 21:19] LABS: Glucose - Point of Care 91 mg/dl (70-99)
[2024-10-29 22:13] LABS: Glucose - Point of Care 135 mg/dl (70-99)
[2024-10-30] VITALS (30 sets, daily range): BP systolic 103–144; BP diastolic 58–87; PULSE 56; O2SAT 97; BMI 27.1
--- NOTE | 2024-10-30 | PTCARENOTE ---
Patient sleeping without difficulty. IV Amiodarone gtt completed. No further changes from previous assessment.
[2024-10-30 00:03] LABS: Glucose - Point of Care 127 mg/dl (70-99)
[2024-10-30 02:13] LABS: Glucose - Point of Care 76 mg/dl (70-99)
--- NOTE | 2024-10-30 02:23 | W.PN.CT ---
Addendum entered and electronically signed by Derik Bhandari MD 10/30/24 09:10:
I saw and examined the patient.
The PA's note was reviewed and I agree with the note.
Comment:
Kishor Mayo - POD#2 s/p MVRp and ELAA
No major events. Doing well
D/C wires, then CTs today
Check echocardiogram tomorrow
OOB/IS/ambulate
Original Note:
Today's Communication / Plan
-
-pod #2
-no issues overnight
-CT output: 2 meds in 12/24 hrs
-discontinue insulin drip, start SSI and restart home meds
-current meds: ASA, Lipitor, Lopressor, Amio, Protonix
-encourage IS, OOB
Assessment / Plan
-
- Myxomatous mitral valve degeneration with severe insufficiency- s/p MVrepair with #40mm Booker physio flex ring, LAAE with [address] Hogan on 10/28/24, pod #2
- Intraop YU: LVEF 65% preop and postop with no new wma. There was no residual mitral valve insufficiency, low mean gradient across the valve, and no systolic anterior motion of the leaflets. The appendage was clipped flush to the base with a
35mm device.
- Myxomatous mitral valve degeneration, severe mitral valve insufficiency, type II pathology mixed with calcification of the subvalvular apparatus
- Diabetes mellitus type 2 (A1c 5.8)
- Hypertension
- Very mild nonobstructive coronary artery disease
- Depression/anxiety
- Hyperlipidemia
- Mild diabetic retinopathy
- PVCs
- Acute postop blood loss anemia - stable, no transfusion
- Acute postop atelectasis
- Acute postop hypovolemia with subsequent hypervolemia
Subjective
Procedure
s/p MVrepair with #40mm Booker physio flex ring, LAAE with [address] Hogan on 10/28/24
-
Date of Service: October 30, 2024
Objective Data
-
Lab Results
10/30/24 05:14
10/30/24 05:14
PT 16.1 Sec (11.4-14.6) H 10/28/24 11:58
INR 1.24 10/28/24 11:58
APTT 29.0 Sec (23.4-35.0) 10/28/24 11:58
Vital Signs
Vital Signs
Temp Pulse Resp BP Pulse Ox
98.7 F 64 16 119/71 94
10/30/24 00:00 10/30/24 02:00 10/30/24 00:00 10/30/24 02:00 10/30/24 00:00
CT Intake/Output/Weight
10/29/24 10/29/24 10/30/24
06:59 18:59 06:59
Intake Total 376.3 / 2157.4 482.1 / 931.8 449.7 / 931.8
Output Total 840 / 1410 190 / 590 400 / 590
Balance -463.7 / 747.4 292.1 / 341.8 49.7 / 341.8
SaO2: 94
Physical Exam
-
General: Awake and AOx3
Cardiovascular: Regular rate & rhythm
Respiratory: Decreased Breath Sounds
Sternum: Stable
Incision: Dressing Intact
[2024-10-30 03:22] LABS: Glucose - Point of Care 148 mg/dl (70-99)
[2024-10-30 04:23] LABS: Glucose - Point of Care 111 mg/dl (70-99)
[2024-10-30] MEDS: ZOFRAN 4 MG IV (05:04)
[2024-10-30] MEDS: NOVOLIN R INSULIN INFUSION 100 IV (05:07)
[2024-10-30] MEDS: NSS 500 IV (05:08)
[2024-10-30 05:20] LABS: Glucose - Point of Care 101 mg/dl (70-99)
[2024-10-30 05:56] LABS: Hematocrit 31.3 % (39.0-52.0); Hemoglobin 11.1 g/dL (13.0-18.0); Mean Corp Hgb Conc. 35.5 g/dL (33.0-37.0); Mean Corpuscular Hgb 32.9 pg (27.0-31.0); Mean Corpuscular Volume 92.9 fL (80.0-94.0); Mean Platelet Volume 11.3 fL (7.4-10.4); Platelet Count 135 10^3/uL (130-400); Red Blood Cell Count 3.37 10^6/uL (4.70-6.10); Red Cell Dist. Width 12.4 % (11.5-14.5); White Blood Cell Count 19.2 10^3/uL (4.8-10.8)
[2024-10-30] MEDS: TYLENOL PO (06:00)
[2024-10-30 06:06] LABS: Blood Urea Nitrogen 27 mg/dl (9-20); Calcium 8.2 mg/dl (8.4-10.2); Carbon Dioxide 27 mmol/L (22-30); Chloride 100 mmol/L (98-107); Estimated Creatinine Clearance > 125 ml/min; Glucose 96 mg/dl (70-99); Magnesium 2.5 mg/dl (1.6-2.3); Potassium 4.4 mmol/L (3.5-5.1); Sodium 134 mmol/L (135-145); eGFR > 60.00
[2024-10-30 06:09] LABS: Glucose - Point of Care 119 mg/dl (70-99)
--- NOTE | 2024-10-30 06:15 | PTCARENOTE ---
Patient A+A+Ox3. No neurological deficits noted. Patient with no urge to void. Bladder scanned for 326 ml. No c/o bladder pain or discomfort. Patient assisted OOB to chair without difficulty. Will attempt to void. Assessment/Interventions as
documented.
[2024-10-30] MEDS: MAGNESIUM OXIDE PO (07:32)
[2024-10-30 08:07] LABS: Glucose - Point of Care 91 mg/dl (70-99)
[2024-10-30] MEDS: BACTROBAN 2% OINTMENT 1 APPLIC NASAL ×2 (08:29→19:37)
[2024-10-30] MEDS: NOVOLOG FLEXPEN 4 UNITS SC ×2 (08:29→12:37)
[2024-10-30] MEDS: TYLENOL 1000 MG PO ×3 (08:35→21:42)
[2024-10-30] MEDS: CYMBALTA DELAYED RELEASE 40 MG PO (08:35)
[2024-10-30] MEDS: PROTONIX 40 MG PO (08:35)
[2024-10-30] MEDS: LIDOCAINE 4% PATCH 1 PATCH TOPICAL (08:36)
[2024-10-30] MEDS: PACERONE 200 MG PO ×3 (08:36→21:43)
[2024-10-30] MEDS: NEURONTIN 100 MG PO ×3 (08:36→21:42)
[2024-10-30] MEDS: SENOKOT-S 1 TABLET PO ×2 (08:36→19:38)
[2024-10-30] MEDS: LOPRESSOR 12.5 MG PO ×2 (08:36→19:37)
[2024-10-30] MEDS: LOW STRENGTH ASPIRIN 81 MG PO (08:36)
--- NOTE | 2024-10-30 09:45 | PTCARENOTE ---
Patient received from police shift commander RN; AAOx4, responds to RN spontaneously and follows commands; NSR on monitor; VSS; Epicardial AV wires connected to temporary pacemaker settings DDD 40/10/0.5 40/10/2.0; +2 DP and radial pulses; Lungs diminished at
bases; Shallow respirations; LINK; SpO2 94-96% on RA; IS 1000 ml; CTx2 to -20 cm wall suction draining serosanguineous drainage - no air leak, tidaling, or crepitus noted; Patient passing gas; Patient urinating katya, clear urine; Sternal Midline
Incision glued and approximated - CDI; RIJ Cordis with KVO and Insulin infusing - see nursing flowsheets for further details; PIVx1 #18 FA; See nursing documentation for further information.
[2024-10-30 10:37] LABS: Glucose - Point of Care 209 mg/dl (70-99)
--- NOTE | 2024-10-30 11:24 | W.PN.UPDATE ---
Update Note
Progress Note Update
EPW removed without issues. Bedrest and frequent VS x 1 hour. RN at the bedside for the procedure.
[2024-10-30 11:36] LABS: Glucose - Point of Care 194 mg/dl (70-99)
[2024-10-30 12:33] LABS: Glucose - Point of Care 176 mg/dl (70-99)
--- NOTE | 2024-10-30 13:00 | PTCARENOTE ---
AV wires pulled by VAUGHN Colunga; Chest tubes x2 removed by RN; VSS throughout; No complications noted; See nursing flowsheets for further details.
[2024-10-30 13:18] LABS: Glucose - Point of Care 195 mg/dl (70-99)
[2024-10-30] MEDS: FERRLECIT 110 MG IV (13:18)
[2024-10-30] MEDS: LANTUS 0.3 UNITS SC (13:18)
[2024-10-30] MEDS: LASIX 40 MG IV (15:37)
[2024-10-30] MEDS: KCL 20 MEQ PO (15:37)
[2024-10-30 16:34] LABS: Glucose - Point of Care 262 mg/dl (70-99)
--- NOTE | 2024-10-30 16:48 | PTCARENOTE ---
Insulin infusion discontinued; Lantus SQ 30 units given; Patient LINK walking in hallways with RN - VAUGHN Colunga notified and IV Lasix 40 mg and PO K 20 mEq given.
[2024-10-30] MEDS: NOVOLOG FLEXPEN-MODERATE RESISTANCE 5 UNITS SC (17:00)
[2024-10-30] MEDS: LIPITOR 10 MG PO (17:00)
[2024-10-30] MEDS: MAGNESIUM OXIDE 500 MG PO (19:37)
--- NOTE | 2024-10-30 19:41 | PTCARENOTE ---
Received pt from [facility]. Walking rounds completed. pt assessment completed in chair. Pt is AAOx4, no neuro deficits noted. Pt denies pain or nausea. NSR on monitor. HR 75, B/P 112/61 POX 93% on 2LNC. Palpable pulses, trace bilateral lower
extremity edema. Lungs clear, slightly diminished in bases. Pt I/S 1000. encouraged pt to use. Normal BS. Abdomen soft, non-tender to touch. pt voiding in urinal. Sternal incision approximated with surgical glue present. no redness or edema noted.
C/T dressing C/D/I. R IJ cordis to KVO. R 18g forearm PVA flushes. No redness or edema noted. Discussed plan of care with pt. Pt agrees with plan. Will continue to monitor pt needs.
[2024-10-30 21:42] LABS: Glucose - Point of Care 210 mg/dl (70-99)
--- NOTE | 2024-10-30 23:13 | PTCARENOTE ---
VSS. Pt in NSR on monitor with occasional PVC's. HR 68, B/P 112/70. evening care provided. Pt resting in bed. Will continue to monitor pt needs.
[2024-10-31] VITALS (9 sets, daily range): BP systolic 106–115; BP diastolic 63–76; BMI 27.1
--- NOTE | 2024-10-31 03:32 | PTCARENOTE ---
VSS. Pt in NSR with PVC's on monitor. HR 72, b/p 128/69. Morning labs obtained and sent. Pt denies pain, N/V. Pt resting in bed. Will continue to monitor pt needs.
[2024-10-31 03:49] LABS: Hematocrit 28.6 % (39.0-52.0); Hemoglobin 10.2 g/dL (13.0-18.0); Mean Corp Hgb Conc. 35.7 g/dL (33.0-37.0); Mean Corpuscular Hgb 33.1 pg (27.0-31.0); Mean Corpuscular Volume 92.9 fL (80.0-94.0); Mean Platelet Volume 11.1 fL (7.4-10.4); Platelet Count 107 10^3/uL (130-400); Red Blood Cell Count 3.08 10^6/uL (4.70-6.10); Red Cell Dist. Width 12.1 % (11.5-14.5); White Blood Cell Count 10.9 10^3/uL (4.8-10.8)
[2024-10-31 04:13] LABS: Blood Urea Nitrogen 21 mg/dl (9-20); Calcium 7.6 mg/dl (8.4-10.2); Carbon Dioxide 32 mmol/L (22-30); Chloride 100 mmol/L (98-107); Estimated Creatinine Clearance > 125 ml/min; Glucose 146 mg/dl (70-99); Magnesium 2.3 mg/dl (1.6-2.3); Potassium 4.5 mmol/L (3.5-5.1); Sodium 134 mmol/L (135-145); eGFR > 60.00
--- NOTE | 2024-10-31 04:55 | W.PN.CT ---
Addendum entered and electronically signed by Derik Bhandari MD 10/31/24 08:32:
I saw and examined the patient.
The PA's note was reviewed and I agree with the note.
Comment:
Kishor Hanamanda - POD#3 s/p MVRp/ELAA
No major overnight events
Continue PO diuresis
Echo tomorrow
D/C planning for tomorrow
Original Note:
Today's Communication / Plan
-
-pod #3
-no issues overnight, occational PVCs noted on tele
-pending echo today
-CTs/EPW removed
-current meds: ASA, Lipitor, Lopressor, Amio, Protonix
-encourage IS, OOB
Assessment / Plan
-
- Myxomatous mitral valve degeneration with severe insufficiency- s/p MVrepair with #40mm Booker physio flex ring, LAAE with [address] Hogan on 10/28/24, pod #3
- Intraop YU: LVEF 65% preop and postop with no new wma. There was no residual mitral valve insufficiency, low mean gradient across the valve, and no systolic anterior motion of the leaflets. The appendage was clipped flush to the base with a
35mm device.
- Myxomatous mitral valve degeneration, severe mitral valve insufficiency, type II pathology mixed with calcification of the subvalvular apparatus
- Diabetes mellitus type 2 (A1c 5.8)
- Hypertension
- Very mild nonobstructive coronary artery disease
- Depression/anxiety
- Hyperlipidemia
- Mild diabetic retinopathy
- PVCs
- Acute postop blood loss anemia - stable, no transfusion
- Acute postop atelectasis
- Acute postop hypovolemia with subsequent hypervolemia
Subjective
Procedure
s/p MVrepair with #40mm Booker physio flex ring, LAAE with [address] Hogan on 10/28/24
-
Date of Service: October 31, 2024
Objective Data
-
Lab Results
10/31/24 03:27
10/31/24 03:27
PT 16.1 Sec (11.4-14.6) H 10/28/24 11:58
INR 1.24 10/28/24 11:58
APTT 29.0 Sec (23.4-35.0) 10/28/24 11:58
Vital Signs
Vital Signs
Temp Pulse Resp BP Pulse Ox
97.8 F 76 16 113/76 96
10/31/24 03:26 10/31/24 04:00 10/31/24 03:26 10/31/24 04:00 10/31/24 04:00
CT Intake/Output/Weight
10/30/24 10/30/24 10/31/24
06:59 18:59 06:59
Intake Total 490.0 / 972.1 908.9 / 908.9
Output Total 440 / 630 1325 / 1325
Balance 50.0 / 342.1 -416.1 / -416.1
SaO2: 96
Physical Exam
-
General: Awake, Oriented and AOx3
Cardiovascular: Regular rate & rhythm, No Rub and Other
Respiratory: Clear and Decreased Breath Sounds
Sternum: Stable
Incision: Clean, Dry and Intact
Extremities: No Edema
Data Reviewed
-
Lab Results: Results Reviewed
Medications: Active Meds Reviewed
Chest X-Ray: Report Reviewed
ECG: Report Reviewed
[2024-10-31] MEDS: CALCIUM GLUCONATE 100 IV (05:07)
--- NOTE | 2024-10-31 05:20 | PTCARENOTE ---
Labs resulted. Calcium 7.6 mg/dl. CTNP made aware. Calcium Gluconate ordered and hung. (See MAR) Will continue to monitor pt needs.
[2024-10-31] MEDS: TYLENOL 1000 MG PO ×3 (06:20→23:16)
[2024-10-31] MEDS: NOVOLOG FLEXPEN-MODERATE RESISTANCE 1 UNITS SC (08:16)
[2024-10-31 08:17] LABS: Glucose - Point of Care 166 mg/dl (70-99)
[2024-10-31] MEDS: CYMBALTA DELAYED RELEASE 40 MG PO (08:52)
[2024-10-31] MEDS: MAGNESIUM OXIDE 500 MG PO ×2 (08:52→20:36)
[2024-10-31] MEDS: LASIX 40 MG PO (08:52)
[2024-10-31] MEDS: SENOKOT-S 1 TABLET PO ×2 (08:52→20:36)
[2024-10-31] MEDS: LANTUS 0.3 UNITS SC (08:53)
[2024-10-31] MEDS: NEURONTIN 100 MG PO ×3 (08:53→23:16)
[2024-10-31] MEDS: LIDOCAINE 4% PATCH 1 PATCH TOPICAL (08:53)
[2024-10-31] MEDS: KCL 20 MEQ PO (08:53)
[2024-10-31] MEDS: LOPRESSOR 12.5 MG PO ×2 (08:53→20:36)
[2024-10-31] MEDS: PACERONE 200 MG PO ×3 (08:53→23:16)
[2024-10-31] MEDS: LOW STRENGTH ASPIRIN 81 MG PO (08:53)
[2024-10-31] MEDS: PROTONIX 40 MG PO (08:53)
[2024-10-31] MEDS: BACTROBAN 2% OINTMENT 1 APPLIC NASAL ×2 (08:54→20:36)
--- NOTE | 2024-10-31 11:00 | PTCARENOTE ---
assumed care of pt from previous shift RN, sinus rhythm on tele, VSS, + peripheral pulses, trace edema to bilateral lower extremities. Lungs diminished, pox 95% on 2L NC, weaned to RA, coughing and deep breathing encouraged. +bs, tolerating PO
intake, voids spontaneously. Right IJ cordis w KVO infusing, PIV flushes easily. Surgical sites stable. Pain well controlled. Plan of care reviewed w the pt and questions encouraged.
--- NOTE | 2024-10-31 12:24 | PTCARENOTE ---
pt tolerated walk in hallway, VSS, sinus rhythm maintained on tele
[2024-10-31] MEDS: NSS IV (12:41)
[2024-10-31 13:01] LABS: Glucose - Point of Care 211 mg/dl (70-99)
[2024-10-31] MEDS: NOVOLOG FLEXPEN-MODERATE RESISTANCE 3 UNITS SC ×2 (13:01→17:07)
[2024-10-31] MEDS: FERRLECIT 110 MG IV (13:02)
[2024-10-31] MEDS: LIPITOR 10 MG PO (16:11)
--- NOTE | 2024-10-31 16:50 | PTCARENOTE ---
Cordis removed without incident.
[2024-10-31 17:07] LABS: Glucose - Point of Care 203 mg/dl (70-99)
--- NOTE | 2024-10-31 20:45 | PTCARENOTE ---
Assumed care of patient. Walking rounds completed with previous RN. Pt assessed while he was sitting in the chair. Pt alert and oriented x4. Denies pain, shortness of breath, and nausea. MCINTOSH with equal strength throughout. Independent walking in the
room. NSR on tele with rates in the 80s. BP 106/67. Heart tones audible. Bilateral radial and DP pulses palpable. Trace b/l ankle edema. POX 91% on RA. Lungs clear throughout. IS encouraged. No cough noted. Abdomen soft, nontender. +BS. +gas. Pt
voiding katya urine in the urinal. Sternal incision approximated with skin glue, ACCOUNT MANAGER EDUCATION. 2 old chest tube sites open, not approximated, ACCOUNT MANAGER EDUCATION. Right forearm 18g PIV intact. See MAR for medication administration. See worklist for complete nursing
assessment. Plan of care reviewed and patient in agreement.
--- NOTE | 2024-10-31 21:00 | PTCARENOTE ---
Pt showered with CHG. Tolerated. Assisted to bed.
--- NOTE | 2024-10-31 23:15 | PTCARENOTE ---
Pt reassessed. Pt resting in bed. VSS. No acute changes.
[2024-11-01] VITALS (10 sets, daily range): BP systolic 95–128; BP diastolic 68–81; PULSE 86; O2SAT 94–97; BMI 26.9
--- NOTE | 2024-11-01 03:07 | W.PN.CT ---
Today's Communication / Plan
-
-pod #4
-no issues overnight
-echo today
-current meds: ASA, Lipitor, Lopressor, Amio, Protonix
-encourage IS, OOB
-discharge planning
Assessment / Plan
-
- Myxomatous mitral valve degeneration with severe insufficiency- s/p MVrepair with #40mm Booker physio flex ring, LAAE with [address] Hogan on 10/28/24, pod #4
- Intraop YU: LVEF 65% preop and postop with no new wma. There was no residual mitral valve insufficiency, low mean gradient across the valve, and no systolic anterior motion of the leaflets. The appendage was clipped flush to the base with a
35mm device.
- Myxomatous mitral valve degeneration, severe mitral valve insufficiency, type II pathology mixed with calcification of the subvalvular apparatus
- Diabetes mellitus type 2 (A1c 5.8)
- Hypertension
- Very mild nonobstructive coronary artery disease
- Depression/anxiety
- Hyperlipidemia
- Mild diabetic retinopathy
- PVCs
- Acute postop blood loss anemia - stable, no transfusion
- Acute postop atelectasis
- Acute postop hypovolemia with subsequent hypervolemia
Subjective
Procedure
s/p MVrepair with #40mm Booker physio flex ring, LAAE with [address] Hogan on 10/28/24
-
Date of Service: November 01, 2024
Objective Data
-
Lab Results
11/01/24 04:43
11/01/24 04:43
PT 16.1 Sec (11.4-14.6) H 10/28/24 11:58
INR 1.24 10/28/24 11:58
APTT 29.0 Sec (23.4-35.0) 10/28/24 11:58
Vital Signs
Vital Signs
Temp Pulse Resp BP Pulse Ox
98.3 F 76 16 115/69 94
10/31/24 23:15 11/01/24 01:00 10/31/24 23:15 10/31/24 23:15 10/31/24 23:15
CT Intake/Output/Weight
10/31/24 10/31/24 11/01/24
06:59 18:59 06:59
Intake Total
Output Total 1250 / 1550 300 / 1550
Balance -1240 / -1540 -300 / -1540
SaO2: 94
Physical Exam
-
General: Awake and AOx3
Cardiovascular: Regular rate & rhythm
Respiratory: Clear and Decreased Breath Sounds
Sternum: Stable
Incision: Clean, Dry and Intact
Extremities: Edema +1
--- NOTE | 2024-11-01 04:45 | PTCARENOTE ---
Pt reassessed. pt resting in bed, denies pain. VSS. Labs drawn and sent. AM weight obtained.
[2024-11-01 05:29] LABS: Hematocrit 28.8 % (39.0-52.0); Hemoglobin 10.5 g/dL (13.0-18.0); Mean Corp Hgb Conc. 36.5 g/dL (33.0-37.0); Mean Corpuscular Hgb 33.5 pg (27.0-31.0); Mean Platelet Volume 10.7 fL (7.4-10.4); Platelet Count 143 10^3/uL (130-400); Red Blood Cell Count 3.13 10^6/uL (4.70-6.10); Red Cell Dist. Width 11.9 % (11.5-14.5); White Blood Cell Count 8.2 10^3/uL (4.8-10.8)
[2024-11-01 05:53] LABS: Blood Urea Nitrogen 15 mg/dl (9-20); Calcium 7.7 mg/dl (8.4-10.2); Carbon Dioxide 30 mmol/L (22-30); Chloride 99 mmol/L (98-107); Estimated Creatinine Clearance > 125 ml/min; Glucose 134 mg/dl (70-99); Magnesium 2.3 mg/dl (1.6-2.3); Potassium 3.9 mmol/L (3.5-5.1); Sodium 134 mmol/L (135-145); eGFR > 60.00
[2024-11-01] MEDS: TYLENOL 1000 MG PO ×2 (06:25→14:23)
[2024-11-01 07:49] LABS: Glucose - Point of Care 161 mg/dl (70-99)
[2024-11-01] MEDS: NOVOLOG FLEXPEN-MODERATE RESISTANCE 1 UNITS SC (07:50)
[2024-11-01] MEDS: BACTROBAN 2% OINTMENT 1 APPLIC NASAL (08:51)
[2024-11-01] MEDS: MAGNESIUM OXIDE 500 MG PO (08:52)
[2024-11-01] MEDS: NEURONTIN 100 MG PO ×2 (08:52→16:35)
[2024-11-01] MEDS: GLUCOPHAGE 1000 MG PO (08:52)
[2024-11-01] MEDS: LOPRESSOR 12.5 MG PO (08:53)
[2024-11-01] MEDS: CYMBALTA DELAYED RELEASE 40 MG PO (08:53)
[2024-11-01] MEDS: DULCOLAX 10 MG PO (08:53)
[2024-11-01] MEDS: SENOKOT-S 1 TABLET PO (08:53)
[2024-11-01] MEDS: PACERONE 200 MG PO (08:54)
[2024-11-01] MEDS: PROTONIX 40 MG PO (08:54)
[2024-11-01] MEDS: FARXIGA 10 MG PO (08:54)
[2024-11-01] MEDS: LOW STRENGTH ASPIRIN 81 MG PO (08:54)
[2024-11-01] MEDS: AMARYL 2 MG PO (08:55)
[2024-11-01] MEDS: LIDOCAINE 4% PATCH TOPICAL (09:02)
[2024-11-01] MEDS: LANTUS SC (09:06)
--- NOTE | 2024-11-01 09:11 | PTCARENOTE ---
Patient received from night shift manager @ 0700. Patient sitting OOB comfortably with call lawson in reach. VSS NSR BP 108/69 HR 82 POX 94% RA. heart sounds audible. Lungs sounds clear. Bowel sounds present and normoactive. Radial and pedal pulses
strong and present bilaterally. Sternal incision open to air and well approximated. Chest tube sites open to air. Left PIV patent and intact. Plan of care discussed with patient and questions encouraged.
[2024-11-01] MEDS: LANTUS 0.3 UNITS SC (09:23)
--- NOTE | 2024-11-01 09:44 | W.DCSUMMARY ---
Addendum entered and electronically signed by Aby Arriola PA-C 11/08/24 08:25:
dx clarification: Chronic heart failure with reduced EF
Original Note:
Discharge Summary
Discharge Data
Date of Admission: 10/28/24
Date of Discharge: 11/01/24
-
Pending Results: No
Hospital Course
Primary care physician: Soniya Delgado
Outpatient clamp truck driver: Dr. Wesley
Inpatient consultants: [facility]
Procedures:
1. Mitral valve repair with left atrial appendage clip
Primary Diagnosis:
1. Myxomatous mitral valve degeneration, Severe mitral regurgitation with prolapse of anterior mitral valve leaflet
Secondary Diagnoses:
1. Diabetes mellitus type 2 (A1C 5.8)
2. Hypertension
3. Very mild nonobstructive coronary artery disease
4. Depression/anxiety
5. Hyperlipidemia
6. Mild diabetic retinopathy
7. PVCs
8. HFrEF (45-50%)
HPI: 59-year-old male was electively admitted on 10/28/2024 for mitral valve repair and left atrial appendage clip
Hospital course: Patient underwent complex mitral valve repair (triangular resection of P2, imbrication of the leaflets at P1/P2 and P2/P3, free edge remodeling, #40 mm band annuloplasty, heavy debridement of calcification from the anterior lateral
probably muscle head to the P1 P2 segment of the posterior annulus) with Dr. Eliezer Hogan. Patient received no intraoperative blood products. Patient received in CVICU on Levophed and Precedex. Patient was extubated 1600 the day of surgery.
Patient did receive amiodarone bolus and infusion for increased PVCs. Patient was weaned off oxygen on postoperative day #1. Epicardial atrial and ventricular wires were discontinued on postoperative day #2 and he stop chest tubes discontinued. A
two-view chest x-ray was completed and reported trace bilateral pleural effusions with adjacent bibasilar atelectasis. No pneumothorax.Farxiga/Jardiance priced and deemed cost prohibitive by patient (Farxiga $594.18 and Jardiance $6702.62 per
month). A predischarge transthoracic echocardiogram reported an EF mildly reduced at 45-50% consistent with postoperative state. Mitral valve gradients 8/3 mmHg with trace MR and mild AI. Per cardiology, lisinopril 5 mg daily was added to his
discharge regime due to reduced ejection fraction. Continue escalation of goal-directed medical therapy as outpatient. Patient discharged on Toprol 25 mg daily. Twelve-lead ECG was performed for QTc monitoring and reported QTc 454ms.
Home medication changes:
NEW:
Gabapentin x 10 days for post-op nerve pain
Lisinopril 5mg daily
Discharge Plan
-
Patient Disposition: Home (Routine Discharge)
Discharge Diagnosis/Procedures: MVR
Condition: Good
Diet: Low Cholesterol, Low Sodium and Diabetic, Carb Controlled
Activity: No strenuous activity
Driving Restrictions: Not until seen by your Dr
Bathing Restrictions: OK to Shower
Other Services: Cardiac Rehab
Specialty Instructions: Weigh Daily- Call MD for wt gain/loss 3 lbs overnight/5 lbs in 1 week
Activity Restrictions/Additional Instructions:
Call [facility] to set Cardiac Rehab appt [phone].
Referrals:
CT Transitional Care Nurse [Outside] - in one to two days
(
The Cardiothoracic Transitional Care Nurse will call you to set up a visit in 1-2 days.)
Enmanuel Wesley MD [Active] - 12/21/24 3:15 pm
Yuly Delgado MD [Family Provider] - in four to six weeks (Please make an appointment in four to six weeks. )
Eliezer Hogan MD [Active] - 11/29/24 1:45 pm
Prescriptions:
New
gabapentin 100 mg Capsule
100 mg PO TID Qty: 30 0RF
lisinopril 5 mg tablet
5 mg PO DAILY Qty: 30 1RF
Continued
atorvastatin 10 mg Tablet
10 mg PO QPM Qty: 0 0RF
glimepiride 2 mg Tablet
2 mg PO BID Qty: 0 0RF
metformin 1,000 mg Tablet
1,000 mg PO BID Qty: 0 0RF
aspirin 81 mg Tablet,Chewable
81 mg PO DAILY Qty: 0 0RF
metoprolol succinate 25 mg Tablet Extended Release 24 Hr
25 mg PO QPM Qty: 0 0RF
duloxetine 40 mg Capsule,Delayed Release(Dr/Ec)
40 mg PO DAILY Qty: 0 0RF
Discontinued
amoxicillin 500 mg Tablet
500 mg PO TID
Discharge Orders:
Discharge Patient (As Directed); Ordered 11/01/24
Ordered By: Flaquita Batista
Care Plan Goals
Care Plan Goals:
Problem: Readiness for enhanced knowledge related to diagnosis and treatment plan
Goal: Understand your diagnosis and treatment plan needs, including medications if applicable.
Instructions: Know your diagnosis, underlying causes and treatment plan options, including medications if applicable. Consult with your health care team to learn about your diagnosis and treatment plan, including medications if applicable.
Discharge Date and Time
Print Language: YI
--- NOTE | 2024-11-01 10:01 | CM ---
Reviewed chart. Met with Mr. Mayo to review discharge plans. He states he is feeling well and maybe able to go home soon. He states he ambulated in the [address] and did the stairs. We reviewed a home visit by the Transitional Care Nurse. He
is agreeable to a home visit. Prior to admission he resides with his spouse in a two story home without any steps to enter. He has a full flight of steps to get to bedroom/full bathroom. He has a powder room on the first floor. Prior to admission
he was independent with ambulation and adls. He does not have any DME in the home. He has a prescription plan and uses [facility]. He states his spouse will be home to assist in his care if needed. Medical work-up in progress. The discharge
plan is to return home with his spouse and a home visit by the Transitional Care Nurse when medically stable.
--- NOTE | 2024-11-01 11:57 | PTCARENOTE ---
Assessment unchanged. Patient OOB with call lawson in reach. VSS BP 112/69 HR 83 POX 94% RA. Urinating katya urine. 2 view chest X-ray completed. Questions encouraged.
[2024-11-01 12:20] LABS: Glucose - Point of Care 106 mg/dl (70-99)
[2024-11-01] MEDS: NOVOLOG FLEXPEN-MODERATE RESISTANCE SC (12:22)
--- NOTE | 2024-11-01 15:38 | W.PN.CARDCBS ---
Today's Communication / Plan
-
Plan:
-s/p MV repair with #40mm Booker physio flex ring, AFNNY clip 10/28/24, postop day 4 with no acute issues overnight.
-doing well. ambulatory around unit with cardiac rehab.
-Echocardiogram today with moderate concentric LVH, abnormal septal motion consistent with postoperative status, hypokinesis of anteroseptal, basal anterior and inferoseptal page with mildly reduced LVEF of 45 to 50%. Assume some changes are
related to postoperative state and mitral regurgitation reduction from severe to trace postoperatively. Patient does not complain of any symptoms concerning for ACS. Recommend optimization of goal-directed medical therapy for underlying
nonischemic cardiomyopathy with switching metoprolol to tartrate to metoprolol succinate 25 mg daily and adding 5 mg of lisinopril while continuing SGLT2 1 with plan to uptitrate as an outpatient and reassess LVEF.
-Continue current medications including Lipitor, aspirin, amiodarone and Protonix.
-Last ECG from October 29, 2023 with prolonged QTc. Recommend repeating 1 prior to discharge.
-OP follow up with ATC
-d/w nursing And CT surgery team.
-Agree with discharge planning.
Impression / Plan
-
Primary Toxicology Teacher: Dr. Teresa Frausto
Assessment:
-Myxomatous mitral valve degeneration with severe insufficiency s/p MV repair with #40mm Booker physio flex ring, FANNY clip 10/28/24
-Diabetes mellitus type 2 (A1c 5.8)
-Hypertension
-Nonobstructive CAD by cath 09/22/24
-Depression/anxiety
-Hyperlipidemia
-Mild diabetic retinopathy
-PVCs
-Post op anemia
ECHO 07/10/24: Anterior mitral valve prolapse with severe MR, EF 50 to 55%
ECHO 11/01/24: mod cLVH, Hypokinesis of anteroseptal, basal anterior and inferoseptal page with mildly reduced left ventricular systolic function. Estimated LV ejection fraction is 45 to 50% by visual estimation. Diastolic function is
indeterminate. Status post mitral valve repair with peak and mean transmitral gradients of 8 and 3 mmHg at heart rate 85 bpm. Trace mitral regurgitation. Mild aortic regurgitation.
Dilated aortic root. Sinus of Valsalva measures 3.9 cm. Sinotubular junction measures 3.5 cm. Ascending aorta measures 4.0 cm.
Plan:
-s/p MV repair with #40mm Booker physio flex ring, FANNY clip 10/28/24, postop day 4 with no acute issues overnight.
-doing well. ambulatory around unit with cardiac rehab.
-Echocardiogram today with moderate concentric LVH, abnormal septal motion consistent with postoperative status, hypokinesis of anteroseptal, basal anterior and inferoseptal page with mildly reduced LVEF of 45 to 50%. Assume some changes are
related to postoperative state and mitral regurgitation reduction from severe to trace postoperatively. Patient does not complain of any symptoms concerning for ACS. Recommend optimization of goal-directed medical therapy for underlying
nonischemic cardiomyopathy with switching metoprolol to tartrate to metoprolol succinate 25 mg daily and adding 5 mg of lisinopril while continuing SGLT2 1 with plan to uptitrate as an outpatient and reassess LVEF.
-Continue current medications including Lipitor, aspirin, amiodarone and Protonix.
-Last ECG from October 29, 2023 with prolonged QTc. Recommend repeating 1 prior to discharge.
-OP follow up with ATC
-d/w nursing And CT surgery team.
-Agree with discharge planning.
Progress Note - Toxicology Teacher
Subjective
Date of Service: November 01, 2024
No acute events overnight. No CP/SOB.
Objective
Labs:
11/01/24 04:43
11/01/24 04:43
Labs
Hgb 10.5 g/dL (13.0-18.0) L 11/01/24 04:43
Hct 28.8 % (39.0-52.0) L 11/01/24 04:43
Plt Count 143 10^3/uL (130-400) D 11/01/24 04:43
PT 16.1 Sec (11.4-14.6) H 10/28/24 11:58
INR 1.24 10/28/24 11:58
APTT 29.0 Sec (23.4-35.0) 10/28/24 11:58
Sodium 134 mmol/L (135-145) L 11/01/24 04:43
Potassium 3.9 mmol/L (3.5-5.1) 11/01/24 04:43
BUN 15 mg/dl (9-20) 11/01/24 04:43
Creatinine 0.6 mg/dL (0.7-1.3) L 11/01/24 04:43
Glucose 134 mg/dl (70-99) H 11/01/24 04:43
Vital Signs and I&O:
Vital Signs
Temp Pulse Resp BP Pulse Ox
98.4 F 85 17 112/69 94
11/01/24 11:50 11/01/24 11:48 11/01/24 11:50 11/01/24 11:48 11/01/24 11:50
Vital Signs
Temp Pulse Resp BP Pulse Ox
98.4 F 85 17 112/69 94
11/01/24 11:50 11/01/24 11:48 11/01/24 11:50 11/01/24 11:48 11/01/24 11:50
Intake & Output
10/30/24 10/31/24 11/01/24 11/02/24
06:59 06:59 06:59 06:59
Intake Total 972.1 / 972.1 908.9 / 908.9 50 50
Output Total 630 / 630 1325 / 1325 2250 / 2250 500 / 500
Balance 342.1 / 342.1 -416.1 / -416.1 -2240 / -2240 -450 / -450
Physical Exam
Physical Exam
GEN: No distress, awake, alert, oriented x3. sitting in chair
HEENT: supple, anicteric, mmm, eomi
LUNGS: Decreased BS B/L bases, no wheezes
CV: Reg, S1/S2, no murmur, -rub, sternotomy scar well healing.
EXT: No cyanosis, clubbing. trace edema of B/L LE
NEURO: Gross non-focal
SKIN: Warm, pink, dry. No rash
[2024-11-01] MEDS: PACERONE PO (17:00)
--- NOTE | 2024-11-01 17:09 | PTCARENOTE ---
Tele monitor and IV line removed. Discharge instructions, medication list and follow up appointments reviewed w the pt and his . Questions encouraged.
--- NOTE | 2024-11-08 07:56 | PN.CDI ---
CDI
- -
CDI:
Physician Documentation Request
Admit Date: 10/28/24 04:[address] Surgery,
Please review the following and provide your response in the progress notes.
Clinical Indicators:
- 11/01 Discharge Summary indicates HFrEF without further specificity
- 11/01 CT Surgery note 'Acute postop hypovolemia with subsequent hypervolemia'
- 10/30 40mg IV Lasix given
- 10/31 40mg PO Lasix given
- No diuretics on discharge
- per H&P no pmh heart failure
Please clarify which of the following accurately represents the acuity of the heart failure.
Acute HFrEF
Acute on chronic HFrEF
Chronic HFrEF
Other (please specify)
Use of terms such as suspected, likely, concern for, or probable (associated with a specific diagnosis that is being evaluated, monitored, or treated as if it exists) are acceptable and can be coded in the inpatient setting, when documented at the
time of discharge.
Thank you,
Jose Silveira RN
CDI Specialist
Please use your independent medical judgment in providing your response.
== END 2024-11-01 17:10 | disposition home or self-care (01) | DRG 220 ==
LOC: CVICU 04:51
PROVIDERS: Anesthesiology; Physician Assistant Medical; Physician Assistant Surgical; ADMITTING PHYSICIAN Thoracic Surgery (Cardiothoracic Vascular Surgery); CONSULT PHYSICIAN Internal Medicine; CONSULT PHYSICIAN Internal Medicine Cardiovascular Disease; FAMILY PHYSICIAN Family Medicine
PROC: 5A1221Z Performance of Cardiac Output, Continuous (ICD-10-PCS; 2024-10-28)
PROC: 02BG0ZZ Excision of Mitral Valve, Open Approach (ICD-10-PCS; 2024-10-28)
PROC: 02UG0JZ Supplement Mitral Valve with Synthetic Substitute, Open Approach (ICD-10-PCS; 2024-10-28)
PROC: B24BZZ4 Ultrasonography of Heart with Aorta, Transesophageal (ICD-10-PCS; 2024-10-28)
PROC: 02L70CK Occlusion of Left Atrial Appendage with Extraluminal Device, Open Approach (ICD-10-PCS; 2024-10-28)
DX: I34.0 Nonrheumatic mitral (valve) insufficiency (principal); D62 Acute posthemorrhagic anemia; I42.8 Other cardiomyopathies; J98.11 Atelectasis; I50.22 Chronic systolic (congestive) heart failure; E11.319 Type 2 diabetes mellitus with unspecified diabetic retinopathy without macular edema; I11.0 Hypertensive heart disease with heart failure; I25.10 Atherosclerotic heart disease of native coronary artery without angina pectoris; E86.1 Hypovolemia; F32.A Depression, unspecified; F41.9 Anxiety disorder, unspecified; E78.5 Hyperlipidemia, unspecified; E11.65 Type 2 diabetes mellitus with hyperglycemia; I49.3 Ventricular premature depolarization; I34.81 Nonrheumatic mitral (valve) annulus calcification; I34.1 Nonrheumatic mitral (valve) prolapse; Z79.82 Long term (current) use of aspirin; Z79.84 Long term (current) use of oral hypoglycemic drugs
CPT/HCPCS: 88305; 36415; 71045; 71046; 71250; 80048; 80053; 81003; 82248; 82330; 82565; 82805; 82810; 82947; 82962; 83036; 83735; 84132; 84302; 84520; 85014; 85018; 85025; 85027; 85049; 85610; 85730; 86850; 86900; 86901; 86920; 87070; 93005; 93306; 93312; 93320; 93325; J2916

== ENCOUNTER 2024-12-02 16:43 | Emergency (ER) | payer BC, SELFPAY ==
[2024-12-02 16:59] VITALS: BP 141/91
[2024-12-02 17:35] LABS: % Eosinophils 6.8 % (0-6); % Immature Granulocytes 0.2 % (0-0.5); % Lymphocytes 28.6 % (20.5-51.1); % Monocytes 9.9 % (1.7-9.3); % Neutrophils 53.5 % (42.2-75.2); Absolute Basophils 0.1 10^3/uL (0-0.2); Absolute Eosinophils 0.6 10^3/uL (0-0.7); Absolute Lymphocytes 2.5 10^3/uL (1.2-3.4); Absolute Monocytes 0.9 10^3/uL (0.1-0.6); Absolute Neutrophils 4.6 10^3/uL (1.4-6.5); Hematocrit 44.3 % (39.0-52.0); Hemoglobin 15.9 g/dL (13.0-18.0); Mean Corp Hgb Conc. 35.9 g/dL (33.0-37.0); Mean Corpuscular Hgb 32.4 pg (27.0-31.0); Mean Corpuscular Volume 90.4 fL (80.0-94.0); Mean Platelet Volume 10.7 fL (7.4-10.4); Nucleated Red Blood Cells % 0 % (-); Platelet Count 194 10^3/uL (130-400); Red Cell Dist. Width 11.9 % (11.5-14.5); White Blood Cell Count 8.7 10^3/uL (4.8-10.8)
[2024-12-02 17:38] VITALS: BMI 25.9
[2024-12-02 17:39] VITALS: BP 135/86
[2024-12-02 17:42] LABS: APTT 26.2 Sec (23.4-35.0); INR 0.92; PT 12.9 Sec (11.4-14.6)
[2024-12-02 17:46] LABS: ALT (SGPT) 19 U/L (0-50); AST (SGOT) 23 U/L (17-59); Albumin 4.6 g/dl (3.5-5.0); Alkaline Phosphatase 80 U/L (38-126); Blood Urea Nitrogen 24 mg/dl (9-20); Calcium 9.4 mg/dl (8.4-10.2); Carbon Dioxide 25 mmol/L (22-30); Chloride 99 mmol/L (98-107); Estimated Creatinine Clearance 114 ml/min; Glucose 114 mg/dl (70-99); Potassium 4.1 mmol/L (3.5-5.1); Sodium 135 mmol/L (135-145); Total Bilirubin 0.6 mg/dl (0.2-1.3); Total Protein 7.7 g/dl (6.3-8.2); eGFR > 60.00
[2024-12-02 18:01] VITALS: BP 119/92
[2024-12-02] MEDS: ELIQUIS 5 MG PO (18:52)
[2024-12-02 19:00] VITALS: BP 118/87
--- NOTE | 2024-12-02 19:22 | ED.GENMED ---
History of Present Illness
General
Chief Complaint: Post Operative Problem(s)
Source: patient
Time Seen by Provider: 12/02/24 18:06
History of Present Illness
History of Present Illness:
Very pleasant 59-year-old male presents to the emergency room at the recommendation of his surgeon. Patient contacted his cardiothoracic surgeon who performed his mitral valve surgery, Dr. Hogan, because he noted purplish discoloration of the tips
of 3 toes on his left foot as well as 1 toe on his right. He also noted some ecchymotic area on his right heel. Patient does not have any pain. He has no other complaints. Patient surgery was performed on October 28.
Phy Exam
Physical Exam
Physical Exam:
General: Awake, Alert, Oriented X3. No acute distress.
Vitals: unremarkable
Head: Atraumatic
Eyes: Pupils equal, EOMI
Throat: Airway intact, no exudates
Neck: Trachea midline
Lungs: Clear and equal b/l
Heart: Regular rate, no murmurs
Abd: Soft, Nontender, No pulsatile mass
Neuro: Nonfocal
Skin: Warm, dry, no rash
Extremities: pulses equal b/l, no edema. Purpleish discolored areas noted left second third and fourth toes. Also area of purplish discoloration or ecchymosis noted right heel and right second toe. Pulses are quite strong bilateral lower
extremities.
Course
Orders/Labs/Results
Orders:
Orders
12/02/24 17:07
EKG [Electrocardiogram (*1)] Urgent
Reason for Study: Other
Other Reason for Exam: bruising
12/02/24 17:08
EKG- Treatment ONCE
12/02/24 17:10
Electrocardiogram (*1) Urgent
Reason for Study: Abnormal EKG
EKG- Treatment ONCE
12/02/24 17:14
Complete Blood Count/With Diff Urgent
Comprehensive Metabolic Panel Urgent
PTT Urgent
Prothrombin Time Urgent
12/02/24 18:43
Apixaban [Eliquis] 5 mg PO NOW STA
Abnormal Lab Results
12/02/24
17:14
MCH 32.4 H pg
(27.0-31.0)
MPV 10.7 H fL
(7.4-10.4)
Absolute Monos (auto) 0.9 H 10^3/uL
(0.1-0.6)
Monocytes % 9.9 H %
(1.7-9.3)
Eosinophils % 6.8 H %
(0-6)
BUN 24 H mg/dl
(9-20)
Glucose 114 H mg/dl
(70-99)
12/02/24 17:14
12/02/24 17:14
Vital Signs
Initial and Last Documented VS:
Initial Vital Signs
Temp Pulse Resp BP Pulse Ox
98.7 F 76 18 141/91 96
12/02/24 16:59 12/02/24 16:59 12/02/24 16:59 12/02/24 16:59 12/02/24 16:59
Last Documented Vital Signs
Temp Pulse Resp BP Pulse Ox
98.7 F 97 17 118/87 94
12/02/24 16:59 12/02/24 19:30 12/02/24 19:30 12/02/24 19:00 12/02/24 19:30
MDM/Problems Addressed
Differential Diagnosis Includes:
Embolic phenomenon from valve, skin changes from calcium or cholesterol emboli that occurred during surgery, local trauma to the toes and heel
MDM/Problems Addressed:
Patient presents for evaluation of skin lesions. Dr. Hogan had initially recommended an echo as well as a CTA of the chest abdomen pelvis. After discussing the patient's presentation we agreed it seems highly unlikely that the patient symptoms are
from a aortic pathology. More likely some micro emboli from surgery. A echocardiogram will be required. However I do not believe the patient is sick enough that we need to call in the senior quality technician. Dr. Lex Salter who is on-call for cardiology also
evaluated the patient. He agrees with arranging an echo tomorrow. Will discharge the patient on Eliquis after discussion with Dr. Hogan and echo performed tomorrow. Further follow-up with Dr. Hogan.
*Pulse Oximetry
Patient hypoxic: no
*EKG
Interpretation: normal
Heart Rate: 99
Rate: normal
Rhythm: sinus
[place]: normal axis
Interval: normal interval
QRS Pattern: normal QRS
Ischemia: non-specific ST changes
*Planning Manager Interpretation
Rate: normal
Interpretation: normal
Rhythm: sinus
*Critical Care Note
Total Time (30-74mins, 75-104mins- exclusive of procedures): Not Applicable
ED Attending Note
-
Portions of this chart may have been created with voice recognition software.� Occasional wrong word or��sound alike� substitutions may have occurred due to the inherent limitations of voice recognition software.
Discharge Plan
Departure
Patient Disposition: Home (Routine Discharge)
Date of Disposition: 12/02/24
Time of Disposition: 19:22
Patient with high blood pressure during this ER visit?: No
Condition: Good
Discharge Problem:
echymosis toes
Instructions: BLOOD PRESSURE
Prescriptions:
New
Eliquis 5 mg tablet
5 mg PO BID Qty: 60 0RF
No Action
atorvastatin 10 mg Tablet
10 mg PO QPM Qty: 0 0RF
glimepiride 2 mg Tablet
2 mg PO BID Qty: 0 0RF
metformin 1,000 mg Tablet
1,000 mg PO BID Qty: 0 0RF
aspirin 81 mg Tablet,Chewable
81 mg PO DAILY Qty: 0 0RF
metoprolol succinate 25 mg Tablet Extended Release 24 Hr
25 mg PO QPM Qty: 0 0RF
duloxetine 40 mg Capsule,Delayed Release(Dr/Ec)
40 mg PO DAILY Qty: 0 0RF
gabapentin 100 mg Capsule
100 mg PO TID Qty: 30 0RF
lisinopril 5 mg tablet
5 mg PO DAILY Qty: 30 1RF
Referrals:
Yuly Delgado MD [Family Provider] -
Activity Restrictions/Additional Instructions:
The reason for the discoloration of your toes is not clear. The echo tomorrow will be helpful. Dr. Hogan asked we start you on a blood thinner for now. Follow up with him as scheduled. Return to the ER if you develop pain further lesions or any
concerns.
Interventions
Interventions:
*Risk Screen - Suicide Last Done: 12/02/24 17:03
*General Assessment Last Done: 12/02/24 17:03
*Neglect/Abuse Screening Last Done: 12/02/24 17:42
ED- Fall Risk Assessment Last Done: 12/02/24 17:42
*ED COVID-19 Vaccine History Last Done: 12/02/24 17:03
*Nursing Disposition Last Done: 12/02/24 19:55
ED-Skin Assessment Last Done: 12/02/24 17:42
Discharge Date and Time
Discharge Date/Time: 12/02/24 19:55
Print Language: [id number]
== END 2024-12-02 19:55 | disposition home or self-care (01) ==
LOC: EMR 16:43
PROVIDERS: Emergency Medicine; EMERGENCY PHYSICIAN Emergency Medicine; FAMILY PHYSICIAN Family Medicine
DX: S90.122A Contusion of left lesser toe(s) without damage to nail, initial encounter (principal); S90.121A Contusion of right lesser toe(s) without damage to nail, initial encounter; X58.XXXA Exposure to other specified factors, initial encounter; Z98.890 Other specified postprocedural states
CPT/HCPCS: 99283; 80053; 85025; 85610; 85730; 93005

== ENCOUNTER → 2024-12-03 08:04 | Outpatient (REF) | payer BC, SELFPAY | LOC: HWRCS 08:04 | PROVIDERS: ATTENDING PHYSICIAN Internal Medicine Cardiovascular Disease; FAMILY PHYSICIAN Family Medicine | DX: I34.0 Nonrheumatic mitral (valve) insufficiency (principal) | CPT/HCPCS: 93306 ==

== ENCOUNTER → 2025-06-23 09:53 | Outpatient (REF) | payer BC, SELFPAY | LOC: HWRCS 09:53 | PROVIDERS: ATTENDING PHYSICIAN Thoracic Surgery (Cardiothoracic Vascular Surgery); FAMILY PHYSICIAN Family Medicine | DX: Z98.890 Other specified postprocedural states (principal) | CPT/HCPCS: 93306 ==